=== PATIENT | male | born 1950 | race Caucasian/White ===

== ENCOUNTER 2019-06-30 12:52 | Outpatient (CLI) | payer MEDICARE, SELFPAY ==
--- NOTE | ~2019-06-30 | US_ITS ---
EXAMINATION: US venous doppler LE EXAM DATE: 06/30/2019 14:28 INDICATION: Bilateral leg edema. TECHNIQUE: Multiple grayscale, color flow and Doppler images of the lower extremity deep venous syste ms bilaterally were obtained and reviewed. Comparison is made to prior examination from 04/20/2016. FINDINGS: Right side: The right common femoral, femoral and profunda veins demonstrate normal color flow, respi ratory variation, augmentation and compressibility. Compressibility, color flow confirmed within the right popliteal, posterior tibial, peroneal, and greater saphenous veins. Left side: The left common femoral, femoral and profunda veins demonstrate normal color flow, respira tory variation, augmentation and compressibility. Compressibility, color flow confirmed within the l eft popliteal, posterior tibial, peroneal, and greater saphenous veins. IMPRESSION: 1. No lower extremity deep venous thrombosis bilaterally. Reviewed, dictated and finalized at location B. ENT WORKER
== END 2019-06-30 12:53 | disposition home or self-care (01) ==
PROVIDERS: PCP Internal Medicine; Visit Provider Nurse Practitioner
DX: R60.9 Edema, unspecified (principal)
CPT/HCPCS: 93970

== ENCOUNTER 2020-04-12 12:37 | Outpatient (CLI) | payer MEDICARE, SELFPAY ==
--- NOTE | ~2020-04-12 | US_ITS ---
EXAMINATION: US thyroid EXAM DATE: 04/12/2020 13:16 INDICATION: Dysphagia. TECHNIQUE: Multiple grayscale and Doppler images of the thyroid were obtained (by a technologist who performed the scan) and subsequently reviewed. Individual nodules and recommendations may be reporte d in accordance with TI-RADS system as designated by the 2017 ACR White Paper TI-RADS committee. The re is no prior study for comparison. FINDINGS: The right thyroid lobe measures 4.4 x 2.2 x 2.0 cm, mildly enlarged. The left measures 4.3 x 2.5 x 1. 8 cm, also mildly enlarged. Mildly heterogeneous thyroid echogenicity. Left thyroid lobe subcentimeter nodule measuring 8 x 6 x 6 mm, solid (2 points), hypoechoic (2 points ), wider than tall, smooth margin, containing peripheral calcification (2 points), category TR4 for t his nodule. IMPRESSION: 1. Mild thyromegaly. 2. Subcentimeter left thyroid lobe nodule not likely clinically significant. Reviewed, dictated and finalized at location A. SKIN TRIMMER
--- NOTE | 2020-04-12 13:20 | ECHO_ITS ---
Patient Info Name: Nicholas Cross Age: 70 years : 1950 Gender: Male Ht: 68 in Wt: 248 lbs BSA: 2.37 m2 HR: 72 bpm BP: 140 / 101 mmHg Heart Rhythm: Sinus Rhythm Technical Quality: Good Exam Date: 04/12/2020 1:29 PM Exam Location: [facility] Patient Status: Outpatient Admit Date: 04/12/2020 Staff Ordering Physician: Brianna Murillo NP Purchasing Contracting Clerk: Dorian Hampton RDCS Attending Provider: Brianna Murillo NP Referring Physician: Jerald Arenas MD; Exam Type: CA echo doppler color flow Study Info Indications I10 - Essential (primary) hypertension Complete two-dimensional, color flow and Doppler transthoracic echocardiogram is performed. Strain analysis performed. Summary 1. Left ventricular systolic function is normal, estimated at 55-60%. 2. There is moderately increased left ventricular wall thickness. 3. The left ventricular diastolic function is grade II diastolic dysfunction. 4. Right atrial chamber dimension is mildly enlarged. 5. There is trace tricuspid valve regurgitation. 6. Unable to estimate PA systolic pressure due to poor spectral resolution of tricuspid regurgitant jet velocity. 7. There is mild mitral valve regurgitation. 8. Right ventricular systolic function is normal with apical hypokinesis.. Left Ventricle Left ventricular chamber dimension is normal. Left ventricular systolic function is normal, estimated at 55-60%. There is moderately increased left ventricular wall thickness. The left ventricular diastolic function is grade II diastolic dysfunction. Global longitudinal strain is mildly elevated at -15 %. Right Ventricle Right ventricular chamber dimension is normal. Right ventricular systolic function is normal with apical hypokinesis.. Left Atria Left atrial chamber dimension is normal. Right Atria Right atrial chamber dimension is mildly enlarged. Aortic Valve The aortic valve is not well visualized. There is no aortic valve stenosis. There is trace aortic valve regurgitation. Pulmonic Valve The pulmonic valve is not well visualized. There is mild pulmonic regurgitation. Mitral Valve The mitral valve has thickened leaflets. There is mild mitral valve regurgitation. The mitral valve annulus is mildly calcified. Tricuspid Valve The tricuspid valve leaflets are normal. There is trace tricuspid valve regurgitation. Unable to estimate PA systolic pressure due to poor spectral resolution of tricuspid regurgitant jet velocity. Pericardium/Pleural The pericardium appears normal. There is small pericardial effusion. Inferior Vena Cava Normal inferior vena cava with >50% collapse upon inspiration consistent with normal right atrial pressure, 5 mmHg. Aorta The aortic root size at the sinus of Valsalva is normal. Left Ventricular Outflow Tract Name Value Normal LVOT 2D LVOT Diameter 2.0 cm LVOT Doppler LVOT Peak Gradient 3 mmHg LVOT Mean Gradient 2 mmHg LVOT VTI 21 cm LVOT VTI/AV VTI Ratio 0.9 LVOT
== END 2020-04-12 12:38 | disposition home or self-care (01) ==
PROVIDERS: PCP Internal Medicine; Referring Provider Specialist; Visit Provider Nurse Practitioner
DX: R13.10 Dysphagia, unspecified (principal); I10 Essential (primary) hypertension
CPT/HCPCS: 76536; 93306

== ENCOUNTER 2021-12-20 14:30 | Outpatient (RCR) | payer MEDICARE, SELFPAY ==
--- NOTE | 2021-11-23 11:29 | PTOPEVAL ---
PHYSICAL THERAPY EVALUATION AND PLAN OF CARE 11-23-21 Thank you for referring Nicholas Cross to [facility] for the diagnosis of B LE lymphedema. Alfonso is scheduled to be seen for therapy? 3-5 x/week for 5 weeks. Treatment will begin at 5x/wk and decrease to 3x/wk as able. Please review, sign, date and return this plan of care FRANCY. I agree with and certify that the following plan of care is medically necessary. Referring Physician Date Attending Provider: Salud Baer NP Past Medical History Source of Past Medical History Patient Neurological History Hx Other Neurological Disorders Yes: essential tremors- med control Cardiovascular History Hx Deep Vein Thrombosis Yes: R and L LE Hx Hypertension Yes: meds Respiratory History Hx Respiratory Disorders No Significant History Gastrointestinal History Hx Hernia Yes: surgical repair Musculoskeletal History Hx Orthopedic Surgery Yes: back surgery-lumbar fusion; R arthroscopy, B patellar smoothing Endocrine History Hx Diabetes Yes Evaluation Information Diagnosis B LE lymphedema Onset about 1 yr ago Prior Level of Function Activity Level (Last 3 Months) Occupation retired Activity of Daily Living Ability Independent Indoor/Home Mobility Independent Community Mobility Independent Functional Cognition (Planning, Shopping Independent , Taking Medications) Cooking Yes Cleaning No Laundry Yes Shopping Yes Driving Yes Home Setting Home Type House Living Situation Alone Mobility Assistive Devices (Used Last 3 Walker, Wheeled Months) Comments Additional Prior Level of Function have senior scheduler assist; Comments reports 3 falls in the past 6 months- lose balance and fall backwards- foot drop L; do not do leg exercises; Pain Assessment Pain Scale Pain Scale Used Numeric (1 - 10) Self Report Pain Assessment Bilateral Leg(s) Reported Pain Level 2 Pain Description Heavy,Sharp Radicular Pain Location sharp pangs shooting in legs intermittent; otherwise heavy legs all time Pain Frequency Chronic,Continuous Lowest Pain Intensity 2 Greatest Pain Intensity 8 Gross Lower Extremity Range of Motion sitting: ankle DF R 0'/ L (-5' Comments ); knee R 0-95' and L 0-95'; in sitting- labored and
--- NOTE | 2021-11-23 11:48 | PCPTNOTE ---
pt signed consent and photos taken of his legs; downloaded into EMR;
--- NOTE | 2021-12-11 16:21 | PCPTNOTE ---
Discussed home intermittent compression pump for home, he is interested in it. Pt signed consent for his info to be faxed to [facility] for insurance authorization for it. This was faxed in.
--- NOTE | 2021-12-13 12:32 | PCPTNOTE ---
Patient called & cancelled scheduled appointment this date due to being sick. Will continue with PT POC.
--- NOTE | 2021-12-20 15:20 | PTOPEVAL ---
Addendum entered by Ya Purdy, PT 02/21/22 12:00: 02-21-22: Mr. Cross has received 4 weeks of lymphedema treatment by PT; he has performed HEP for LE's, elevation and had compression to his legs. He continues to have issues with lymphedema of his legs and would benefit from a home intermittent compression pump to manage his chronic condition. Original Note: PHYSICAL THERAPY DISCHARGE REPORT 12-20-21 Refer to the clinical summary below, for his status today, compared to the initial evaluation. Discharge PT services. Thank you for referring Nicholas Cross to [facility].? Please review, sign, date and return this Discharge Report FRANCY. I agree with and certify that the following plan of care is medically necessary. Referring Physician Date Attending Provider: Salud Baer NP Subjective Information Alfonso reports: garments are Query Text:As Reported By Patient/ doing OK- little tricky to put Family on, but am able to do it; they are comfortable and no problems; just saw my general dr and put me on another antibiotic for safety since legs are still so red; feel like ready to be done with therapy; Pain Assessment Self Report Self Report Pain Level 0 Pain Score Pain Score 0: Self Report Lower Extremity Muscle Strength Testing General Lower Extremity Strength Gross Lower Extremity Strength supine: R and L LE- able to perform 20 reps of supine SLR and hip abduction Lymphedema Evaluation Skin Inspection Location Left Lower Extremity,Right Lower Extremity Skin Observations Hyperkeratosis, Hyperpigmentation,Hyperplasia Tissue Texture Firm Lymphedema Stage II Skin Inspection Comment L LE: redness over lower leg from ~ 14 to 36 cm from bottom of foot; no redness over toes or dorsum of foot; good skin color over knee and thigh --without any redness or fibrosis of tissue; dry flaking skin over lower leg ------- R LE: redness over lower leg from ~ 16 to 24 cm from bottom of foot; slight dry and flaking skin over lower leg; good skin color over knee and thigh, without any redness or fibrotic tissue LE Circumferential Measurement Right LE Lymphedema Side Righ
== END 2021-12-21 10:37 | disposition home or self-care (01) ==
LOC: ANHPT 14:30
PROVIDERS: PCP Internal Medicine; Referring Provider Nurse Practitioner; Visit Provider Nurse Practitioner
DX: R60.0 Localized edema (principal)
CPT/HCPCS: 97140; 97162; 97530

== ENCOUNTER 2022-03-08 12:51 | Outpatient (CLI) | payer MEDICARE, SELFPAY ==
--- NOTE | ~2022-03-08 | US_ITS ---
EXAMINATION: US venous doppler [facility] DATE: 03/08/2022 13:32 INDICATION: Venous thrombosis TECHNIQUE: Grayscale ultrasound images without and with compression and Doppler ultrasound images of the bilateral lower extremity veins were obtained. COMPARISON: None. FINDINGS: The visualized portions of right common femoral vein, profunda (deep) femoral vein, femoral vein, pop liteal vein, posterior tibial veins, peroneal veins and greater saphenous vein outflow are patent. The visualized portions of left common femoral vein, profunda femoral vein, femoral vein, popliteal v ein, posterior tibial veins, peroneal veins and greater saphenous vein outflow are patent. IMPRESSION: 1. No deep venous thrombosis in either lower limb. Reviewed, dictated and finalized at location A.
== END 2022-03-08 12:52 | disposition home or self-care (01) ==
PROVIDERS: PCP Internal Medicine; Visit Provider Internal Medicine
DX: R60.0 Localized edema (principal); Z86.718 Personal history of other venous thrombosis and embolism
CPT/HCPCS: 93970

== ENCOUNTER → 2022-04-19 14:38 | Outpatient (CLI) | payer MEDICARE, SELFPAY ==
--- NOTE | ~2022-04-19 | XR_ITS ---
XR chest 2V 04/19/2022 14:56 Indication: Shortness of breath Procedure: 2 view chest Comparison: 04/22/2015 Findings: Cardiomegaly. Moderate right pleural effusion versus pleural thickening. Right basilar atel ectasis. Left lung is clear. No acute osseous abnormality. Impression: 1: Moderate right pleural effusion versus pleural thickening. 2: Right basilar atelectasis. Reviewed, dictated and finalized at location A. M CHASER Impression: 1: Moderate right pleural effusion versus pleural thickening. 2: Right basilar atelectasis.
== END ==
PROVIDERS: PCP Nurse Practitioner; Visit Provider Nurse Practitioner
DX: R06.02 Shortness of breath (principal); J98.11 Atelectasis; J90 Pleural effusion, not elsewhere classified
CPT/HCPCS: 71046

== ENCOUNTER 2022-04-24 14:35 | Outpatient (CLI) | payer MEDICARE, SELFPAY ==
--- NOTE | ~2022-04-24 | CT_ITS ---
EXAMINATION: CT diagnostic chest w con DATE: 04/24/2022 15:08 INDICATION: Right pleural effusion. TECHNIQUE: Computed tomography (CT) of the chest was performed without intravenous contrast. The dose -length product was 374.54 mGy-cm. Automated exposure control and iterative reconstruction technique were employed. COMPARISON: No prior studies for comparison. FINDINGS: Small right pleural effusion. Elevated right diaphragm, suspicious for phrenic nerve paraly sis. There is compressive atelectasis in the right lower lobe. There is mediastinal lymph node enlarg ement. Right paratracheal lymph node measures 1.7 cm short axis. Heart size normal. No pericardial or left pleural effusion. No endobronchial lesions. No suspicious pulmonary nodules or masses. There is a 2 mm right upper lobe nodule. IMPRESSION: 1. Small right pleural effusion with underlying right basilar compressive atelectasis. 2: Elevation of the right diaphragm, suspicious for phrenic nerve paralysis. 3: Mediastinal lymphadenopathy, nonspecific. 4: 2 mm right upper lobe nodule, likely benign. Reviewed, dictated and finalized at location B. HAUL OR FARM CHARTER BUS DRIVER IMPRESSION: 1. Small right pleural effusion with underlying right basilar compressive atele ctasis. 2: Elevation of the right diaphragm, suspicious for phrenic nerve paralysis. 3: Mediastinal lymphadenopathy, nonspecific. 4: 2 mm right upper lobe nodule, likely benign.
== END 2022-04-24 14:36 | disposition home or self-care (01) ==
PROVIDERS: PCP Nurse Practitioner; Visit Provider Nurse Practitioner
DX: J90 Pleural effusion, not elsewhere classified (principal); J92.9 Pleural plaque without asbestos
CPT/HCPCS: 71260; Q9967

== ENCOUNTER 2022-06-26 13:54 | Emergency (ER) | payer MEDICARE, SELFPAY ==
--- NOTE | ~2022-06-26 | XR_ITS ---
EXAM: XR elbow LT min 3V DATE: 06/26/2022 15:14 HISTORY: fall, left elbow laceration, pain bleeding . COMPARISON: None available. FINDINGS: Mildly decreased mineralization. No fracture or dislocation. No lytic or blastic lesion. M oderate degenerative change in the elbow joint. No erosion or periosteal change. No elbow joint effus ion. Soft tissue swelling and subcutaneous gas in the posterior soft tissues overlying the olecranon. IMPRESSION: No acute osseous finding in the left elbow. Reviewed, dictated and finalized at location K. ING MECHANIC
[2022-06-26 14:00] VITALS: BP 157/62; PULSE 102; RESP 18; TEMP 37.4; O2SAT 99
--- NOTE | 2022-06-26 15:05 | ED.FALL ---
HPI - Fall General Chief Complaint: Fall Stated Complaint: fall last night-left elbow laceration Time Seen by Provider: 06/26/22 14:15 History of Present Illness HPI Narrative: Patient is a 72-year-old male presenting with a laceration. Patient states that he woke up in the middle of the night to get a glass of water. States that he lost his balance while in the kitchen and he fell back landing on his left elbow. States that he has a large laceration to the left elbow. States that he was able to rinse it out and apply Neosporin. He then put a gauze pad over it. States he had to go get his car looked at this morning and then he came here for evaluation. He is unsure when his last tetanus shot was. He denies striking his head or losing consciousness. No neck or back pain. He denies further complaints or injuries. Related Data Home Medications Medication Instructions Recorded Confirmed diphenhydramine HCl 50 mg capsule 50 mg PO BID 06/25/19 04/19/22 melatonin 10 mg capsule 20 mg PO .QHS 06/25/19 04/19/22 multivitamin 1 tablet PO DAILY 06/25/19 04/19/22 omega-3 fatty acids 1,000 mg 1,000 mg PO BID 06/25/19 04/19/22 capsule (Fish Oil Concentrate) fluticasone propionate 50 2 spray intranasal DAILY 07/29/19 04/19/22 mcg/actuation nasal spray,suspension (Flonase Allergy Relief) glucosamine-chondroitin 250 mg-200 1 tablet PO BID 11/25/19 04/19/22 mg tablet (Osteo Bi-Flex) naltrexone 50 mg tablet 4.5 mg PO DAILY 11/25/19 04/19/22 Allergies Allergy/AdvReac Type Severity Reaction Status Date / Time No Known Allergies Allergy Unknown Verified 06/26/22 14:31 Review of Systems Review of Systems: All systems reviewed & are unremarkable except as noted in HPI and below PMFSH Past Medical History Medical History Allergies Arthritis Bilateral lower extremity edema Cataract fragments in both eyes following surgery Chronic total retinal detachment Chronic venous stasis dermatitis of both lower extremities GERD (gastroesophageal reflux disease) History of DVT (deep vein thrombosis) Hypertension Testicular cancer Type 2 diabetes mellitus Surgical History Surgical History H/O hernia repair History of cataract surgery Left: August 2019 Right: February 2020 History of knee surgery History of vasectomy Family History Family History Father Diabetes mellitus Family history of congestive heart failure Mother Diabetes mellitus Unknown Family history of bladder cancer Social History Social History Social History: Caffeine-coffee daily Smoking status: Former smoker Smoking end date: 06/03/97 Alcohol intake: current Alcohol use details: 3 drinks every day, gin Lack of Transportation: YES Lack of Food: Never True Current Housing: I Have Housing Concerned About Future Housing: No Difficulty Paying Gas/Electric Bills: No Difficulty Paying for Meds: No Currently Unemployed: No Education: High School Diploma/GED Difficulty w/ Childcare or Family Care: No Exam Narrative: GENERAL: Well-appearing, well-nourished, and in no acute distress. HEAD: Normocephalic, atraumatic. EYES: PERRLA and EOMI. ENT: Nares clear, no rhinorrhea or epistaxis. Mucous membranes moist. NECK: Supple. CHEST: Clear to auscultation. No respiratory distress. HEART: Regular rate and rhythm. No murmur heard. Normal peripheral pulses. ABDOMEN: Soft, nontender, nondistended, normal active bowel sounds. EXTREMITIES: Normal range of motion. Significant pitting edema bilateral lower extremities with dressings in place SKIN: Warm, dry, no rash. Large gaping laceration left elbow, no retained foreign bodies, normal ROM NEURO: No focal deficits. Alert and oriented x3. PSYCH: Normal mood and a
[2022-06-26] MEDS: TETANUS,DIPHTHERIA,AC PERTUSSIS ADULT (0.5 ML) BOOSTRIX IM (15:40)
== END 2022-06-26 17:30 | disposition home or self-care (01) ==
PROVIDERS: Emergency Provider Emergency Medicine; PCP Nurse Practitioner
DX: S51.012A Laceration without foreign body of left elbow, initial encounter (principal); M19.90 Unspecified osteoarthritis, unspecified site; K21.9 Gastro-esophageal reflux disease without esophagitis; I10 Essential (primary) hypertension; E11.9 Type 2 diabetes mellitus without complications; W01.0XXA Fall on same level from slipping, tripping and stumbling without subsequent striking against object, initial encounter; Z23 Encounter for immunization
CPT/HCPCS: 12004; 73080; 90471; 90715; 99283

== ENCOUNTER 2022-07-05 14:34 | Emergency (ER) | payer MEDICARE, SELFPAY ==
[2022-07-05] VITALS (26 sets, daily range): BP systolic 145–166; BP diastolic 63–145; PULSE 93–105; RESP 18–22; TEMP 36.3–36.8; O2SAT 97–100
--- NOTE | ~2022-07-05 | XR_ITS ---
EXAMINATION: XR foot LT min 3V DATE: 07/05/2022 23:28 INDICATION: Left foot infection TECHNIQUE: Dorsoplantar, lateral, and 2 oblique views of the left the bones are osteopenic. foot were obtained. COMPARISON: None FINDINGS: The bones are osteopenic. No acute fracture is identified. There appear to be old healed fr actures of the second and fifth proximal phalanges. There is moderate osteoarthritis of multiple inte rphalangeal joints. Soft tissue swelling is seen over the metatarsals. There appears to be a plantar soft tissue defect of the proximal foot on the lateral view.. IMPRESSION: 1. Soft tissue swelling of the foot with possible plantar ulceration. No acute osseous abnormality id entified. Reviewed, dictated and finalized at location B. PMENT OPERATOR IMPRESSION: 1. Soft tissue swelling of the foot with possible plantar ulceration. No acute osseous abnormality identified.
[2022-07-05] MEDS: ACETAMINOPHEN 500 MG TABLET 1000 MG PO (21:14)
[2022-07-05 21:30] LABS: Basophils Percent Auto 0.3 % (0.2-1.2); Eosinophils Absolute Auto 0.1 K/mm3 (0-0.3); Eosinophils Percent Auto 1.6 % (0-4.4); Hematocrit 33.6 % (42.0-52.0); Immature Granulocyte Absolute 0.02 K/mm3 (0.00-0.031); Immature Granulocyte Percent A 0.3 % (0-0.5); Lymphocytes Absolute Auto 0.84 K/mm3 (0.9-3.2); Lymphocytes Percent Auto 13.1 % (18.3-44.2); Mean Corpuscular HGB Conc 32.7 g/dl (32-36); Mean Corpuscular Volume 100.9 fl (80-100); Monocytes Absolute Auto 0.8 K/mm3 (0.1-0.6); Monocytes Percent Auto 12.8 % (2.6-8.5); Neutrophils Absolute Auto 4.6 K/mm3 (1.3-6.7); Neutrophils Percent Auto 71.9 % (45.5-73.1); Platelet Count Result 252 k/mm3 (150-375); Red Blood Count 3.33 M/mm3 (4.6-6.20); Red Cell Distribution Width 16.3 % (11.5-14.5); White Blood Count 6.4 K/mm3 (4.5-10.0)
[2022-07-05 21:40] LABS: Anion Gap 5 mmol/L (8-16); Blood Urea Nitrogen 14 mg/dL (9-20); Calcium 8.5 mg/dL (8.4-10.2); Carbon Dioxide 26 mmol/L (22-30); Chloride 109 mmol/L (98-107); Estimated CRCL calculation 131 ml/min; Estimated Glomerular Filt Rate > 60; Glucose 129 mg/dL (65-110); Potassium 4.1 mmol/L (3.4-5.0); Sodium 140 mmol/L (137-145)
[2022-07-05] MEDS: ceFAZolin SODIUM 1 GM VIAL IV PUSH (21:56)
[2022-07-05 22:13] LABS: Influenza A QL RT-PCR Negative (Negative); Influenza B QL RT-PCR Negative (Negative); RSV RNA, RT-PCR Negative (Negative); SARS-CoV-2 RNA PCR Negative
--- NOTE | 2022-07-05 22:56 | ED.WOUNDLAC ---
HPI - Wound/Laceration General Chief Complaint: Wound/Laceration Stated Complaint: wounds on legs Time Seen by Provider: 07/05/22 21:06 History of Present Illness HPI narrative: 72-year-old male with history of lymphedema presents here with concern for infection on his left foot, he has no systemic symptoms, including fevers or chills, nausea or vomiting. He gets dressing changes 3 times a week, and the nurse was worried about an infection. Related Data Home Medications Medication Instructions Recorded Confirmed diphenhydramine HCl 50 mg capsule 50 mg PO BID 06/25/19 07/05/22 multivitamin 1 tablet PO DAILY 06/25/19 07/05/22 omega-3 fatty acids 1,000 mg 1,000 mg PO BID 06/25/19 07/05/22 capsule (Fish Oil Concentrate) fluticasone propionate 50 2 spray intranasal DAILY 07/29/19 07/05/22 mcg/actuation nasal spray,suspension (Flonase Allergy Relief) glucosamine-chondroitin 250 mg-200 1 tablet PO BID 11/25/19 07/05/22 mg tablet (Osteo Bi-Flex) Allergies Allergy/AdvReac Type Severity Reaction Status Date / Time No Known Allergies Allergy Unknown Verified 07/05/22 21:29 Review of Systems Review of Systems: CONST: No fever. HEENT: No sore throat C/V: No chest pain RESP: No cough GI: No nausea or vomiting M/S: Ulcer/slight pain to left lateral foot SKIN: Ulcer to bottom/lateral left foot NEURO: [No headache or focal numbness or weakness] PSYCH: [No depression] [facility] Past Medical History Medical History Allergies Arthritis Bilateral lower extremity edema Cataract fragments in both eyes following surgery Chronic total retinal detachment Chronic venous stasis dermatitis of both lower extremities GERD (gastroesophageal reflux disease) History of DVT (deep vein thrombosis) Hypertension Testicular cancer Type 2 diabetes mellitus Surgical History Surgical History H/O hernia repair History of cataract surgery Left: August 2019 Right: February 2020 History of knee surgery History of vasectomy Family History Family History Father Diabetes mellitus Family history of congestive heart failure Mother Diabetes mellitus Unknown Family history of bladder cancer Social History Social History Social History: Caffeine-coffee daily Smoking status: Former smoker Smoking end date: 06/03/97 Alcohol intake: current Alcohol use details: 3 drinks every day, gin Lack of Transportation: YES Lack of Food: Never True Current Housing: I Have Housing Concerned About Future Housing: No Difficulty Paying Gas/Electric Bills: No Difficulty Paying for Meds: No Currently Unemployed: No Education: High School Diploma/GED Difficulty w/ Childcare or Family Care: No Exam Narrative: EXAMINATION OF ORGAN SYSTEMS/BODY AREAS: Constitutional: Vital signs per nursing GENERAL:[No acute distress, non-toxic appearing.] HEAD: Normal with no signs of head trauma. EYES: EOMI, conjunctiva normal ENT: Hearing grossly intact LUNGS: Nonlabored breathing. HEART: [Regular rate and rhythm] ABD: [Soft], [nontender to palpation] EXT: Normal painless range of motion; 1cm x 1 cm small ulcer to left lateral foot, no active drainage, some mild surrounding erythema, no exquisite tenderness SKIN: Described above NEURO: [Alert and oriented x 3. No gross focal sensory or strength deficits.] PSYCH: Normal affect Course Vital Signs Vital signs: Vital Signs Temperature 97.3 F L 07/05/22 14:35 Pulse Rate 93 07/05/22 14:35 Respiratory Rate 18 07/05/22 14:35 Blood Pressure 149/66 H 07/05/22 14:35 Pulse Oximetry 98 07/05/22 14:35 Oxygen Delivery Room Air 07/05/22 14:35 Temperature 98.2 F 07/05/22 20:17 Pulse Rate 97 07/06/22 00:28 Respiratory Rate 19 07/05/22 21:16 Blood Pressure
[2022-07-06 00:28] VITALS: BP 152/98; PULSE 97; O2SAT 99
== END 2022-07-06 00:30 | disposition home or self-care (01) ==
LOC: ANHED 22:17
PROVIDERS: Emergency Provider Emergency Medicine; PCP Internal Medicine
DX: L08.9 Local infection of the skin and subcutaneous tissue, unspecified (principal); Z20.822 Contact with and (suspected) exposure to COVID-19; I89.0 Lymphedema, not elsewhere classified; E11.9 Type 2 diabetes mellitus without complications; I10 Essential (primary) hypertension; H59.023 Cataract (lens) fragments in eye following cataract surgery, bilateral; H33.059 Total retinal detachment, unspecified eye; K21.9 Gastro-esophageal reflux disease without esophagitis; M19.90 Unspecified osteoarthritis, unspecified site; Z86.718 Personal history of other venous thrombosis and embolism; Z85.47 Personal history of malignant neoplasm of testis; Z87.891 Personal history of nicotine dependence; Z79.84 Long term (current) use of oral hypoglycemic drugs; Z79.01 Long term (current) use of anticoagulants
CPT/HCPCS: 36415; 73630; 80048; 85025; 87040; 87637; 96374; 99284; A9270; J0690

== ENCOUNTER 2022-07-13 11:15 | Outpatient (RCR) | payer MEDICARE, SELFPAY ==
--- NOTE | 2022-05-21 16:11 | PTOPEVAL1 ---
Addendum entered by Ya Purdy, PT 05/22/22 10:37: plan of care increased to 0-5x/wk, to allow for first 2 weeks of treatment to be 5x/wk due to weeping and drainage, to change compression wraps more often. Original Note: Assessment and note entered by Ya Purdy, PT Evaluation Information Assessment Status Evaluation Diagnosis B LE lymphedema Onset January 2022 Subjective Information legs more swollen, have completed antibiotics about one month ago; have had 2 falls in the past 3 months; have not worn the knee high compression garments since about January; have been using the home compression machine every day; have weeping from legs and not putting any bandages on legs; Reported Pain Level Pain Score Self Report Additional Pain Score Comments pain range of 3-8/10, pain in both legs and knees, L > R; Assessment PT Clinical Summary Alfonso has B LE lymphedema. He was here for treatment in November to December 2021. He had a home intermittent compression pump and calf high compression garments. Since January, he has not worn his compression garments due to legs larger and started weeping again. He has completed antibiotics. He also now has more abdominal issues with diarrhea, going to go to gastro dr and also has a referral to a thermostat maker. With the evaluation, his legs are red, with superficial open areas with weeping; they are larger with the circumferential measurements than when he was last here R by 124.9 cm and L by 126.6 cm larger. He has decreased ROM of R and L knee flexion and ankle DF motions. Skilled PT services are indicated for lymphedema treatment--multi layer compression wraps, manual lymph drainage, LE exercises and education for self care of lymphedema and leg exercises. With education for compression garment for him to obtain. Plan of Care Interventions Lymphedema Compression Pu,Manual Lymph Drainage, Therapeutic Exercise PT Services Indicated Yes Treatment Frequency and 0-3x/wk for 8 weeks, due to availability of Duration therapist to start treatment These treatments will address the objective and functional deficits as defined above. The patient will be advanced safely and appropriately in order for the patient to progress towards his/her prior level of function. Additional exercises will be introduced and as well as a compre
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
--- NOTE | 2022-06-18 15:12 | PCPTNOTE ---
pt had to cancel tomorrow's appt due to a dentist appt;
--- NOTE | 2022-06-22 12:01 | PCPTNOTE ---
pt called and canceled due to illness
--- NOTE | 2022-06-27 10:51 | PCPTNOTE ---
pt canceled due to bad weather;
--- NOTE | 2022-06-29 13:39 | PCPTNOTE ---
pt called and canceled due to illness;
--- NOTE | 2022-07-04 16:28 | PCPTNOTE ---
Addendum entered by Rachel Marrufo, LILY 07/04/22 16:38: Pt has MD appointment tomorrow 07/05/22 @ 10:00. Specified where appointment was. Original Note: Pt's therapy session ran long due to Pt's decreased condition. Pt had slight redness over L lateral foot on Jun 21, with no complaints and looked similar to R foot. Therapist noted on Jul 02 slight red area was now L lateral aspect of foot with superficial area--pt reports he stepped on glass before starting therapy--~ 3cm x 2 cm- dark edge with red wound bed- superficial; . This date Pt's L lateral aspect of foot with superficial area, Swelling is 7cm x 5 cm with wound in center measuring 3cm x 2 cm- dark edge with red wound bed- superficial that has now opened, around wound red in color, and warm to the touch. Asked Pt to go to MD. Pt then called MD to get in due to wound becoming worse, Pt has appointment tomorrow 07/05/22 @10:00. Spoke with Pt's MD office on phone and informed them of the wound, falls, and R LE decreasing in status. Then stressed to Pt importance of going due to wound, R LE decreasing in status, and Pt falling several times over the weekend.
--- NOTE | 2022-07-11 11:51 | PCPTNOTE ---
pt called and canceled today's appt-- cannot make it in today.
--- NOTE | 2022-07-17 16:17 | PCPTNOTE ---
pt called and canceled today's reeval, 30 min after appt time; stated he had another fall and is not able to make it in today.
--- NOTE | 2022-07-23 15:05 | PCPTNOTE ---
PHYSICAL THERAPY DISCHARGE 07-23-22 Attending Provider: Salud Baer NP Patient:Nicholas Cross Date of :1950 Mr. Cross called today and canceled his PT appointments for lymphedema, due to going to an in patient rehab unit. Therefore, he will be discharged at this time. The goals were not addressed. Thank you for referring Alfonso to [facility].
== END 2022-07-24 13:44 | disposition home or self-care (01) ==
LOC: ANHPT 11:15
PROVIDERS: PCP Nurse Practitioner; Visit Provider Nurse Practitioner
DX: I87.2 Venous insufficiency (chronic) (peripheral) (principal)
CPT/HCPCS: 29581; 97110; 97140; 97161; 97530

== ENCOUNTER 2022-07-13 14:19 | Emergency (ER) | payer MEDICARE, SELFPAY ==
[2022-07-13 14:34] VITALS: BP 160/85; PULSE 102; RESP 16; TEMP 36.2; O2SAT 100
--- NOTE | 2022-07-13 14:48 | ED.LOWEXIN ---
HPI - Extremity Injury (Lower) General Chief Complaint: Extremity Injury, Lower Stated Complaint: open sore lt foot Time Seen by Provider: 07/13/22 14:35 Source: patient Mode of arrival: ambulatory Limitations: no limitations History of Present Illness HPI Narrative: 72-year-old male with history of diabetes, DVT, HTN, and chronic venous stasis dermatitis presented for complaint worsening left foot ulcer despite antibiotic treatment. Patient was seen in the ER for this wound on 07/05/22, given IV Ancef and discharged with oral antibiotics doxy and cephalexin. Last dose is today. He admits the ulcer to the plantar/lateral aspect is tender, and the site is spreading with redness up to the dorsal aspect of the foot. States he follows with the lymphedema Clinic MWF, and today they told him it appears worse than 4 days ago. He did not go to the clinic 2 days ago as scheduled (sat) due to right sided pain. He was seen 3 days ago by PCP, the wound was not evaluated at that time. Denies recent drainage from the wound. Currently denies n/v/d/f/c. He denies applying anything to the site or taking anything for pain. Related Data Home Medications Medication Instructions Recorded Confirmed diphenhydramine HCl 50 mg capsule 50 mg PO BID 06/25/19 07/13/22 multivitamin 1 tablet PO DAILY 06/25/19 07/13/22 omega-3 fatty acids 1,000 mg 1,000 mg PO BID 06/25/19 07/13/22 capsule (Fish Oil Concentrate) fluticasone propionate 50 2 spray intranasal DAILY 07/29/19 07/13/22 mcg/actuation nasal spray,suspension (Flonase Allergy Relief) glucosamine-chondroitin 250 mg-200 1 tablet PO BID 11/25/19 07/13/22 mg tablet (Osteo Bi-Flex) psyllium husk 3.4 gram/5.4 gram 1 tbsp PO DAILY 07/10/22 07/13/22 oral powder (Metamucil) Allergies Allergy/AdvReac Type Severity Reaction Status Date / Time No Known Allergies Allergy Unknown Verified 07/13/22 14:25 Review of Systems Review of Systems: CONSTITUTIONAL: Denies body aches, fever, chills, or sweats. EYES: Denies visual changes, redness, or discharge. ENT: Denies rhinorrhea, congestion CARDIOVASCULAR: Denies chest pain, palpitations; reports chronic edema of LEs RESPIRATORY: Denies cough or dyspnea. GASTROINTESTINAL: Denies abdominal pain, nausea, vomiting, or diarrhea. SKIN: per HPI MUSCULOSKELETAL: Denies back pain, joint pain, or myalgia. NEUROLOGIC: Denies headache, numbness, tingling, or weakness. [facility] Past Medical History Medical History Allergies Arthritis Bilateral lower extremity edema Cataract fragments in both eyes following surgery Chronic total retinal detachment Chronic venous stasis dermatitis of both lower extremities GERD (gastroesophageal reflux disease) History of DVT (deep vein thrombosis) Hypertension Testicular cancer Type 2 diabetes mellitus Surgical History Surgical History H/O hernia repair History of cataract surgery Left: August 2019 Right: February 2020 History of knee surgery History of vasectomy Family History Family History Father Diabetes mellitus Family history of congestive heart failure Mother Diabetes mellitus Unknown Family history of bladder cancer Social History Social History Social History: Caffeine-coffee daily Smoking status: Former smoker Smoking end date: 06/03/97 Alcohol intake: current Alcohol use details: 3 drinks every day, gin Lack of Transportation: No Lack of Food: Never True Current Housing: I Have Housing Concerned About Future Housing: No Difficulty Paying Gas/Electric Bills: No Difficulty Paying for Meds: No Currently Unemployed: No Education: High School Diploma/GED Difficulty w/ Childcare or Family Care: No Comments At time of signature, I have revie
== END 2022-07-13 15:02 | disposition short-term general hospital (02) ==
PROVIDERS: Emergency Provider Nurse Practitioner Family; PCP Nurse Practitioner
DX: E11.621 Type 2 diabetes mellitus with foot ulcer (principal); I10 Essential (primary) hypertension; Z86.718 Personal history of other venous thrombosis and embolism; Z85.47 Personal history of malignant neoplasm of testis; Z87.891 Personal history of nicotine dependence
CPT/HCPCS: 99212; G0463

== ENCOUNTER 2022-07-13 15:54 | Emergency (ER) | payer MEDICARE, SELFPAY ==
[2022-07-13] VITALS (7 sets, daily range): BP systolic 120–156; BP diastolic 48–80; PULSE 95–103; RESP 14–18; TEMP 36.3–37.1; O2SAT 98–100
--- NOTE | ~2022-07-13 | XR_ITS ---
EXAMINATION: XR foot LT min 3V DATE: 07/13/2022 16:42 INDICATION: Left foot ulcer. Left foot redness and swelling. TECHNIQUE: 4 views of left foot were obtained. COMPARISON: Left foot radiographs 07/05/2022 FINDINGS: Bone alignment is normal. There is a nondisplaced transverse fracture of head of fifth prox imal phalanx. There is diffuse osteopenia. There is mild osteoarthrosis of first metatarsophalangeal joint and some the interphalangeal joints and midfoot joints. No radiopaque foreign body. There is so ft tissue swelling of the foot. IMPRESSION: 1. Transverse fracture of head of fifth proximal phalanx, which may be subacute or chronic. 2. Mild polyarticular osteoarthritis. Reviewed, dictated and finalized at location A. OFF TENDER GLASS
[2022-07-13 16:35] LABS: Basophils Percent Auto 0.3 % (0.2-1.2); Eosinophils Absolute Auto 0.1 K/mm3 (0-0.3); Eosinophils Percent Auto 0.6 % (0-4.4); Hematocrit 33.9 % (42.0-52.0); Immature Granulocyte Absolute 0.03 K/mm3 (0.00-0.031); Immature Granulocyte Percent A 0.3 % (0-0.5); Lymphocytes Absolute Auto 1.21 K/mm3 (0.9-3.2); Lymphocytes Percent Auto 13.9 % (18.3-44.2); Mean Corpuscular HGB Conc 32.4 g/dl (32-36); Mean Corpuscular Hemoglobin 32.5 pg (26-34); Mean Corpuscular Volume 100.3 fl (80-100); Mean Platelet Volume 9.2 fl (7.4-10.4); Monocytes Absolute Auto 0.8 K/mm3 (0.1-0.6); Monocytes Percent Auto 8.6 % (2.6-8.5); Neutrophils Absolute Auto 6.6 K/mm3 (1.3-6.7); Neutrophils Percent Auto 76.3 % (45.5-73.1); Platelet Count Result 323 k/mm3 (150-375); Red Blood Count 3.38 M/mm3 (4.6-6.20); Red Cell Distribution Width 16.5 % (11.5-14.5); White Blood Count 8.7 K/mm3 (4.5-10.0)
[2022-07-13 16:46] LABS: Alanine Aminotransferase 21 U/L (6-50); Albumin Level 3.6 g/dL (3.5-5.1); Alkaline Phosphatase 112 U/L (38-126); Anion Gap 9 mmol/L (8-16); Aspartate Amino Transferase 29 U/L (17-59); Blood Urea Nitrogen 17 mg/dL (9-20); Calcium 8.9 mg/dL (8.4-10.2); Carbon Dioxide 18 mmol/L (22-30); Chloride 110 mmol/L (98-107); Creatine Kinase 130 U/L (55-170); Estimated CRCL calculation 103 ml/min; Estimated Glomerular Filt Rate > 60; Glucose 109 mg/dL (65-110); Potassium 3.7 mmol/L (3.4-5.0); Sodium 137 mmol/L (137-145)
[2022-07-13 16:47] LABS: Lactic Acid Reflex 1.4 mmol/L (0.7-2.0)
[2022-07-13 18:42] LABS: CRP 3.4 mg/dL (<1.0)
--- NOTE | 2022-07-13 19:48 | ED.GENADULT ---
HPI - General Adult General Chief complaint: Extremity Problem,Nontraumatic Stated complaint: diabetic ulcer left foot Time Seen by Provider: 07/13/22 17:39 Source: patient Mode of arrival: ambulatory Limitations: no limitations History of Present Illness HPI narrative: 72-year-old with a history of hypertension, lymphedema, diabetes here with the complaints of ulcer on his left foot which has been ongoing for for several weeks. Patient states that he is being treated by Dr. Forte for lymphedema with compression stockings and he is presently on doxycycline and Keflex. He denies any fever or chills, no drainage from the wound , he was seen by PA. Some erythema on the dorsum of the foot was referred to the ER for further evaluation. Severity: mild Pain Consistency: constant Relieving factors: none Exacerbating factors: none Associated symptoms: denies other symptoms Related Data Home Medications Medication Instructions Recorded Confirmed diphenhydramine HCl 50 mg capsule 50 mg PO BID 06/25/19 07/13/22 multivitamin 1 tablet PO DAILY 06/25/19 07/13/22 omega-3 fatty acids 1,000 mg 1,000 mg PO BID 06/25/19 07/13/22 capsule (Fish Oil Concentrate) fluticasone propionate 50 2 spray intranasal DAILY 07/29/19 07/13/22 mcg/actuation nasal spray,suspension (Flonase Allergy Relief) glucosamine-chondroitin 250 mg-200 1 tablet PO BID 11/25/19 07/13/22 mg tablet (Osteo Bi-Flex) psyllium husk 3.4 gram/5.4 gram 1 tbsp PO DAILY 07/10/22 07/13/22 oral powder (Metamucil) Metamucil 07/13/22 Allergies Allergy/AdvReac Type Severity Reaction Status Date / Time No Known Allergies Allergy Unknown Verified 07/13/22 14:25 Review of Systems Review of Systems: All systems reviewed & are unremarkable except as noted in HPI and below Constitutional: Constitutional: Reports no additional constitutional complaints Eyes: Eyes: Reports no additional eye complaints ENT: Reports system reviewed and no additional complaints, except as documented Cardiovascular: Cardiovascular: Reports no additional cardiovascular complaints Respiratory: Respiratory: Reports no additional respiratory complaints Gastrointestinal: Gastrointestinal: Reports no additional gastrointestinal complaints Musculoskeletal: Musculoskeletal: Reports as per HPI Integumentary/Breasts: Skin/Breast: Reports as per HPI Neurologic: Reports system reviewed and no additional complaints, except as documented PMF Past Medical History Medical History Allergies Arthritis Bilateral lower extremity edema Cataract fragments in both eyes following surgery Chronic total retinal detachment Chronic venous stasis dermatitis of both lower extremities GERD (gastroesophageal reflux disease) History of DVT (deep vein thrombosis) Hypertension Testicular cancer Type 2 diabetes mellitus Surgical History Surgical History H/O hernia repair History of cataract surgery Left: August 2019 Right: February 2020 History of knee surgery History of vasectomy Family History Family History Father Diabetes mellitus Family history of congestive heart failure Mother Diabetes mellitus Unknown Family history of bladder cancer Social History Social History Social History: Caffeine-coffee daily Smoking status: Former smoker Smoking end date: 06/03/97 Alcohol intake: current Alcohol use details: 3 drinks every day, gin Lack of Transportation: No Lack of Food: Never True Current Housing: I Have Housing Concerned About Future Housing: No Difficulty Paying Gas/Electric Bills: No Difficulty Paying for Meds: No Currently Unemployed: No Education: High School Diploma/GED Difficulty w/ Childcare or Family Care: No Exam Narrative: GEN
== END 2022-07-13 20:30 | disposition home or self-care (01) ==
PROVIDERS: Emergency Provider Family Medicine; PCP Nurse Practitioner
DX: E11.628 Type 2 diabetes mellitus with other skin complications (principal); L89.892 Pressure ulcer of other site, stage 2; I89.0 Lymphedema, not elsewhere classified; I87.2 Venous insufficiency (chronic) (peripheral); H59.023 Cataract (lens) fragments in eye following cataract surgery, bilateral; H33.059 Total retinal detachment, unspecified eye; K21.9 Gastro-esophageal reflux disease without esophagitis; M19.072 Primary osteoarthritis, left ankle and foot; Z86.718 Personal history of other venous thrombosis and embolism; Z85.47 Personal history of malignant neoplasm of testis; Z87.891 Personal history of nicotine dependence; S92.515A Nondisplaced fracture of proximal phalanx of left lesser toe(s), initial encounter for closed fracture; Z79.01 Long term (current) use of anticoagulants; Z79.84 Long term (current) use of oral hypoglycemic drugs; X58.XXXA Exposure to other specified factors, initial encounter
CPT/HCPCS: 36415; 73630; 80053; 82550; 83605; 85025; 86140; 87040; 99283

== ENCOUNTER 2022-08-01 14:25 | Outpatient (CLI) | payer MEDICARE, SELFPAY ==
--- NOTE | ~2022-08-01 | US_ITS ---
US art doppler w press LE BI INDICATION: Peripheral artery disease. Diabetes. History of testicular cancer. Claudication. Numbness and leg pain. TECHNIQUE: Segmental pressures and plethysmographic and Doppler waveforms of the brachial and lower e xtremity arteries were obtained. COMPARISON: None. FINDINGS: Right and left brachial artery pressures of 149 mm Hg and 151 mm Hg, respectively, are concordant (no rmal difference <= 30 mmHg). The right ankle-brachial index (CARINA) is 1.26 (normal >= 0.9-1.0). The right great toe-brachial index (TBI) is 0.78 (normal >= 0.60). The left CARINA is 1.2. The left TBI is 0.68. IMPRESSION: 1. Normal bilateral ankle and toe brachial indices. Reviewed, dictated and finalized at location B. ING SERVICES DIRECTOR
== END 2022-08-01 14:26 | disposition home or self-care (01) ==
PROVIDERS: PCP Nurse Practitioner; Visit Provider Podiatrist Foot & Ankle Surgery
DX: I73.9 Peripheral vascular disease, unspecified (principal)
CPT/HCPCS: 93923

== ENCOUNTER 2022-08-23 12:51 | Inpatient (IN) | payer MEDICARE, SELFPAY ==
[2022-08-23] VITALS (7 sets, daily range): BP systolic 138–192; BP diastolic 60–93; PULSE 81–90; RESP 16–20; TEMP 36.5–36.7; O2SAT 96–100; BMI 30.3; BMI 30.9
--- NOTE | ~2022-08-23 | US_ITS ---
US venous doppler [facility] DATE: 08/23/2022 18:26 INDICATION: Lower extremity edema TECHNIQUE: Real-time and color flow imaging and Doppler analysis of the veins of the lower extremitie s COMPARISON: 03/08/2022 venous duplex examination of the lower extremities FINDINGS: The greater saphenous veins are patent. There is spontaneous and phasic flow and normal aug mentation and color flow signal and normal compression of the deep veins of both lower extremities. T here is edema of both lower extremities. IMPRESSION: Edema of both lower extremities No evidence of deep venous thrombosis of the lower extremities Reviewed, dictated and finalized at Location A. Reviewed, dictated and finalized at location A.
--- NOTE | 2022-08-23 16:46 | ED.EXTPRO ---
HPI - Extremity Problem General Chief complaint: Extremity Problem,Nontraumatic Stated complaint: bilateral leg edema Time Seen by Provider: 08/23/22 16:44 Source: patient Mode of arrival: ambulatory Limitations: no limitations History of Present Illness HPI Narrative: Patient is a 72-year-old male with a history of DVT on chronic anticoagulation, hypertension, Type II DM, chronic venous stasis and lymphedema, presenting to the emergency department for evaluation of worsening bilateral lower extremity edema, sores to legs. Patient was seen by his wellness trainer today and referred here for further evaluation and management. Patient reports he had 2-week history of worsening blisters to bilateral lower extremities, redness and weeping of fluid from the legs. He reports history of peripheral neuropathy and does mild soreness to the legs. No significant pain. He does endorse tenderness and paresthesias which are chronic for him. Patient reports left foot wound ulceration which is improved. Patient states he has been wearing compression socks without improvement in his symptoms. He does go to the lymphedema clinic associated with this hospital as well. Patient states he had a recent arterial study which was negative. He has been compliant with his medication including his anticoagulation. PT denies fever, chills, nausea or vomiting. He denies pain. Per chart review, patient with bilateral normal brachial indexes bilaterally this month. Related Data Home Medications Medication Instructions Recorded Confirmed diphenhydramine HCl 50 mg capsule 50 mg PO BID 06/25/19 07/13/22 multivitamin 1 tablet PO DAILY 06/25/19 07/13/22 omega-3 fatty acids 1,000 mg 1,000 mg PO BID 06/25/19 07/13/22 capsule (Fish Oil Concentrate) fluticasone propionate 50 2 spray intranasal DAILY 07/29/19 07/13/22 mcg/actuation nasal spray,suspension (Flonase Allergy Relief) glucosamine-chondroitin 250 mg-200 1 tablet PO BID 11/25/19 07/13/22 mg tablet (Osteo Bi-Flex) psyllium husk 3.4 gram/5.4 gram 1 tbsp PO DAILY 07/10/22 07/13/22 oral powder (Metamucil) Metamucil 07/13/22 Allergies Allergy/AdvReac Type Severity Reaction Status Date / Time No Known Allergies Allergy Unknown Verified 08/23/22 17:53 Review of Systems Review of Systems: CONSTITUTIONAL: Denies fever, chills, or sweats. EYES: Denies visual changes, redness, or discharge. ENT: Denies rhinorrhea, congestion, sore throat, or otalgia. CARDIOVASCULAR: Denies chest pain, palpitations, reports worsening leg edema RESPIRATORY: Denies cough or dyspnea. GASTROINTESTINAL: Denies abdominal pain, nausea, vomiting, or diarrhea. GENITOURINARY: Denies dysuria or hematuria. SKIN: Reports redness, blistering to bilateral lower extremities MUSCULOSKELETAL: Denies back pain, joint pain, or myalgia. NEUROLOGIC: Denies headache, reports chronic peripheral neuropathy this [facility] Past Medical History Medical History Allergies Arthritis Bilateral lower extremity edema Cataract fragments in both eyes following surgery Chronic total retinal detachment Chronic venous stasis dermatitis of both lower extremities GERD (gastroesophageal reflux disease) History of DVT (deep vein thrombosis) Hypertension Testicular cancer Type 2 diabetes mellitus Surgical History Surgical History H/O hernia repair History of cataract surgery Left: August 2019 Right: February 2020 History of knee surgery History of vasectomy Family History Family History Father Diabetes mellitus Family history of congestive heart failure Mother Diabetes mellitus Unknown Family history of bladder cancer Social History Social History Social History: Caffeine-coffee daily Smoking status: Former smoker
[2022-08-23 18:52] LABS: Basophils Percent Auto 0.8 % (0.2-1.2); Eosinophils Absolute Auto 0.1 K/mm3 (0-0.3); Hematocrit 33.2 % (42.0-52.0); Hemoglobin 10.4 g/dL (14.0-18.0); Immature Granulocyte Absolute 0.02 K/mm3 (0.00-0.031); Immature Granulocyte Percent A 0.4 % (0-0.5); Lymphocytes Absolute Auto 1.28 K/mm3 (0.9-3.2); Lymphocytes Percent Auto 27.1 % (18.3-44.2); Mean Corpuscular HGB Conc 31.3 g/dl (32-36); Mean Corpuscular Hemoglobin 33.7 pg (26-34); Mean Corpuscular Volume 107.4 fl (80-100); Mean Platelet Volume 10.2 fl (7.4-10.4); Monocytes Absolute Auto 0.7 K/mm3 (0.1-0.6); Monocytes Percent Auto 14.4 % (2.6-8.5); Neutrophils Absolute Auto 2.6 K/mm3 (1.3-6.7); Neutrophils Percent Auto 54.3 % (45.5-73.1); Platelet Count Result 241 k/mm3 (150-375); Red Blood Count 3.09 M/mm3 (4.6-6.20); Red Cell Distribution Width 16.2 % (11.5-14.5); White Blood Count 4.7 K/mm3 (4.5-10.0)
[2022-08-23 18:59] LABS: Alanine Aminotransferase 15 U/L (6-50); Albumin Level 3.6 g/dL (3.5-5.1); Alkaline Phosphatase 119 U/L (38-126); Anion Gap 6 mmol/L (8-16); Aspartate Amino Transferase 21 U/L (17-59); Bilirubin,Total 0.8 mg/dL (0.2-1.3); Blood Urea Nitrogen 14 mg/dL (9-20); Calcium 8.7 mg/dL (8.4-10.2); Carbon Dioxide 29 mmol/L (22-30); Chloride 108 mmol/L (98-107); Estimated CRCL calculation 121 ml/min; Estimated Glomerular Filt Rate > 60; Glucose 110 mg/dL (65-110); Potassium 3.6 mmol/L (3.4-5.0); Sodium 143 mmol/L (137-145)
[2022-08-23 19:01] LABS: CRP 6.9 mg/dL (<1.0)
[2022-08-23 19:09] LABS: NT Pro B Type Natriuretic Pept 3020 pg/mL (19.9-100)
[2022-08-23 19:27] LABS: Erythrocyte Sedimentation Rate 118 mm/hr (0-20)
[2022-08-23 19:30] LABS: Macrocytosis 1+ (NORMAL); Ovalocytes 1+ (NORMAL); Platelet Estimate Adequate (Adequate); Schistocytes None Seen (NORMAL)
[2022-08-23] MEDS: ACETAMINOPHEN 500 MG TABLET 1000 MG PO (19:40)
[2022-08-23] MEDS: FUROSEMIDE INJ 40 MG/4 ML VIAL IV PUSH (19:41)
--- NOTE | 2022-08-23 19:56 | PM.IMHP ---
H&P: HPI History of Present Illness Date/Time: 08/23/22 19:56 Chief Complaint: Worsening edema Narrative: This is a 72-year-old male with past medical history significant for chronic bilateral lower extremity lymphedema, hypertension, GERD, DVT, type diabetes mellitus, left foot chronic ulcer. Patient presents to the emergency room due to worsening bilateral lower extremity edema with skin slough off, patient uses a walker as an aid, sleeps in a recliner. Patient denies PND, orthopnea, no chest pain, no cough, no fevers, no chills, no rigors, no night sweats. Preliminary workup was significant for bilateral lower extremity Doppler ultrasound was negative for acute deep vein thrombosis. CBC hemoglobin of 10 hematocrit 33 MCV 107. Patient is been admitted for further evaluation management and treatment. Review of Systems Review of Systems: Worsening bilateral lower extremity edema, skin slough off Constitutional: Constitutional: Denies chills, Denies fever(s), Denies malaise, Denies night sweats, Denies poor appetite and Denies weakness Eyes: Eyes: Denies change in vision ENT: Denies dysphagia, Denies vertigo, Denies dizziness and Denies odynophagia Cardiovascular: Cardiovascular: Denies chest pain, Reports leg edema and Denies lightheadedness Respiratory: Respiratory: Denies chest congestion, Denies cough and Denies excessive phlegm production Gastrointestinal: Gastrointestinal: Denies abdominal pain, Denies dyspepsia, Denies heartburn, Denies diarrhea, Denies nausea and Denies vomiting Genitourinary: Genitourinary: Denies dysuria Musculoskeletal: Musculoskeletal: Reports other (Bilateral lower extremity worsening swelling) Integumentary/Breasts: Skin/Breast: Reports erythema, Reports skin ulcer and Reports wounds (Skin tears) Neurologic: Denies focal weakness and Denies Sensory deficit (Neuro) Psychiatric: Psychiatric: Reports no additional psychiatric complaints and Reports as per HPI Endocrine: Endocrine: Denies cold intolerance, Denies flushing, Denies heat intolerance, Denies polyphagia, Denies polydipsia and Denies palpitations Hematologic/Lymphatic: Hematologic/Lymphatic: Reports no additional hematologic/lymphatic complaints and Reports as per HPI Allergic/Immunologic: Allergic/Immunologic: Reports no additional allergic/immunologic complaints and Reports as per HPI PMFSH Past Medical History Medical History Allergies Arthritis Bilateral lower extremity edema Cataract fragments in both eyes following surgery Chronic total retinal detachment Chronic venous stasis dermatitis of both lower extremities GERD (gastroesophageal reflux disease) History of DVT (deep vein thrombosis) Hypertension Testicular cancer Type 2 diabetes mellitus Surgical History Surgical History H/O hernia repair History of cataract surgery Left: August 2019 Right: February 2020 History of knee surgery History of vasectomy Family History Family History (Updated 08/23/22 @ 23:06 by Kaushal Brewer RN) Father Diabetes mellitus Family history of congestive heart failure Mother Diabetes mellitus Unknown Obesity Grandparent Family history of bladder cancer Social History Social History Social History: Caffeine-coffee daily Smoking status: Never smoker Smoking end date: 06/03/97 Alcohol intake: current Drinks per week: 14 Alcohol use details: 3 drinks every day, gin Substance use: current Substance use type: marijuana Lack of Transportation: No Lack of Food: Never True Current Housing: I Have Housing Concerned About Future Housing: No Difficulty Paying Gas/Electric Bills: No Difficulty Paying for Meds: No Currently Unemployed: No Education: High School Diploma/GED Difficulty w/ Childcare or Family Care: No Spiritual care
--- NOTE | 2022-08-23 22:18 | PC.NURSE ---
Patient arrived on 3 Med-Surg at 22:10 on 08/23/2022
[2022-08-23] MEDS: ACETAMINOPHEN 325 MG TABLET 650 MG PO (22:36)
--- NOTE | 2022-08-24 | ECHO_ITS ---
Patient Info Name: Nicholas Cross Age: 72 years : 1950 Gender: Male Ht: 68 in Wt: 199 lbs BSA: 2.11 m2 HR: 92 bpm BP: 149 / 68 mmHg Heart Rhythm: Indeterminant Technical Quality: Fair Exam Date: 08/24/2022 1:27 PM Exam Location: [facility] Room: 321 Patient Status: Inpatient Admit Date: 08/23/2022 Staff Ordering Physician: Darien Strauss MD Warehouse Driver: Sangita Lemus RDCS Attending Provider: Darien Strauss MD Referring Physician: Rica BANKS; Exam Type: CA echo doppler color flow Study Info Indications - elevated troponins YADIEL Complete two-dimensional, color flow and Doppler transthoracic echocardiogram is performed. Summary 1. Complete two-dimensional, color flow and Doppler transthoracic echocardiogram is performed. 2. Left ventricular hypertrophy with preserved systolic function and diastolic noncompliance. 3. Biatrial dilation. 4. Mildly sclerotic aortic valve which is nonstenotic. 5. RV enlargement. 6. Tricuspid regurgitation velocity analysis suggests RV systolic pressures of 54. Left Ventricle Left ventricular chamber dimension is normal. Left ventricular systolic function is normal, estimated at Empty. There is moderate concentric increased left ventricular wall thickness. The left ventricular diastolic function is abnormal. Right Ventricle Right ventricular chamber dimension is mildly enlarged. Left Atria Left atrial chamber dimension is moderately enlarged. Right Atria Right atrial chamber dimension is moderately enlarged. Aortic Valve The aortic valve is trileaflet. There is mild aortic valve sclerosis. Pulmonic Valve The pulmonic valve is normal. Mitral Valve The mitral valve has normal leaflets. There is trace mitral valve regurgitation. Tricuspid Valve The tricuspid valve leaflets are normal. There is mild tricuspid valve regurgitation. Moderate pulmonary hypertension, estimated pulmonary arterial systolic pressure is 54 mmHg. Pericardium/Pleural The pericardium appears normal. Aorta The aortic root size at the sinus of Valsalva is normal. Left Ventricular Outflow Tract Name Value Normal LVOT 2D LVOT Diameter 2.1 cm LVOT Doppler LVOT Peak Gradient 3 mmHg LVOT Mean Gradient 2 mmHg LVOT VTI 17 cm LVOT VTI/AV VTI Ratio 0.9 LVOT Stroke Volume 62 ml LVOT CO 14.5 l/min LVOT CI 6.9 l/min/m2 Pulmonic Valve Name Value Normal PV Doppler PV Peak Gradient 3 mmHg Mitral Valve Name Value Normal
[2022-08-24] MEDS: APIXABAN 2.5 MG TABLET PO ×3 (00:42→17:27)
[2022-08-24 01:09] VITALS: PULSE 100
[2022-08-24] MEDS: PROPRANOLOL HCL 60 MG CAPSULE CR PO (01:09)
[2022-08-24 02:51] VITALS: BP 149/68; PULSE 95; RESP 18; TEMP 36.2; O2SAT 97
[2022-08-24] MEDS: PSYLLIUM POWDER PACKET 1 PACKET PO (09:10)
[2022-08-24] MEDS: FINASTERIDE 5 MG TABLET BY MOUTH (09:10)
[2022-08-24] MEDS: OMEGA 3 POLYUNSAT FATTY ACIDS 1 GM CAP PO (09:10)
[2022-08-24] MEDS: LOSARTAN POTASSIUM 100 MG TABLET PO (09:11)
[2022-08-24] MEDS: FUROSEMIDE INJ 40 MG/4 ML VIAL IV PUSH ×2 (09:11→17:27)
[2022-08-24] MEDS: PANTOPRAZOLE 40 MG TABLET PO (09:11)
[2022-08-24] MEDS: MULTIVITAMINS THERAPEUTIC TAB (*BKC) 1 TABLET PO (09:11)
[2022-08-24] MEDS: ACETAMINOPHEN 325 MG TABLET 650 MG PO ×3 (09:13→20:09)
[2022-08-24] MEDS: diphenhydrAMINE HCl CAP 25 MG CAPSULE 50 MG PO ×2 (09:14→17:29)
--- NOTE | 2022-08-24 10:30 | PM.IMPN ---
Progress Note: A&P Assessment and Plan (1) Congestive heart failure: Code(s): I50.9 - Heart failure, unspecified Status: Acute Assessment and Plan: BNP 3520 venous Dopplers performed showed edema both lower extremities echo ordered and pending furosemide IV 40 mg b.i.d. trend daily weights trend urine output appears to be acute on chronic diastolic heart failure and exacerbation continue propanolol, losartan (2) Gait instability: Code(s): R26.81 - Unsteadiness on feet Status: Acute Assessment and Plan: Likely secondary to worsening bilateral lower extremity edema Patient uses a walker PT and OT (3) Diabetic ulcer of foot associated with type 2 diabetes mellitus, limited to breakdown of skin: Qualifiers: Diabetic foot ulcer location: unspecified part of foot Laterality: left Qualified Code(s): E11.621 - Type 2 diabetes mellitus with foot ulcer; L97.521 - Non-pressure chronic ulcer of other part of left foot limited to breakdown of skin Code(s): E11.621 - Type 2 diabetes mellitus with foot ulcer; L97.501 - Non-pressure chronic ulcer of other part of unspecified foot limited to breakdown of skin Status: Acute Assessment and Plan: Local care Wound care and ostomy consult stable continue outpatient treatment (4) Chronic venous stasis dermatitis of both lower extremities: Code(s): I87.2 - Venous insufficiency (chronic) (peripheral) Status: Acute Assessment and Plan: Wound care and ostomy consult (5) GERD (gastroesophageal reflux disease): Qualifiers: Esophagitis presence: without esophagitis Qualified Code(s): K21.9 - Gastro-esophageal reflux disease without esophagitis Code(s): K21.9 - Gastro-esophageal reflux disease without esophagitis Status: Acute Assessment and Plan: PPI as needed Time Spent With Patient Time: 53 minutes Time with patient: Greater than 35 minutes Subjective Date/time seen: 08/24/22 1030 Interval history: 08/24/22 1030 patient was lying in bed. Patient states he feels better however his legs are very swollen, Red and warm with multiple areas of open wounds. He denies any current chest pain, nausea, vomiting, diarrhea constipation. He did state that he had some shortness of breath which is been more recent change for him. He also stated that he has chronic diarrhea. Currently he is being diuresed. Wound Care Also seen him. 08/23/22? 19:56 This is a 72-year-old male with past medical history significant for chronic bilateral lower extremity lymphedema, hypertension, GERD, DVT, type diabetes mellitus, left foot chronic ulcer.? Patient presents to the emergency room due to worsening bilateral lower extremity edema with skin slough off, patient uses a walker as an aid, sleeps in a recliner.? Patient denies PND, orthopnea, no chest pain, no cough, no fevers, no chills, no rigors, no night sweats.? Preliminary workup was significant for bilateral lower extremity Doppler ultrasound was negative for acute deep vein thrombosis.? CBC hemoglobin of 10 hematocrit 33 MCV 107.? Patient is been admitted for further evaluation management and treatment. Review of Systems Review of Systems: All systems reviewed & are unremarkable except as noted in HPI and below Exam Narrative: General: well-nourished, well-appearing 72-year-old male, laying in bed, comfortable, NARD Neuro: awake, alert and oriented x4, speech clear, no focal neuro deficits noted HEENMT: normocephalic, atraumatic, EOMI, sclerae anicteric, moist oral mucosa Respiratory: Clear to auscultation bilaterally without crackles, rhonchi or wheezes, nonlabored breathing Cardio: regular rate, regular rhythm with S1-S2 Abdomen: nondistended, normoactive bowel sounds, soft, nontender to palpation Extremities: 3-4+ pittin
[2022-08-24] MEDS: BETAMETHASONE/CLOTRIMAZOLE CR 15 GM TUBE 1 APPLIC TOPICAL ×2 (11:37→21:10)
[2022-08-24 14:46] VITALS: BMI 30.9
[2022-08-24 15:07] VITALS: BP 138/85; PULSE 85; RESP 16; TEMP 36.7; O2SAT 100
[2022-08-24 21:05] VITALS: BP 112/59; PULSE 82; RESP 20; TEMP 37.2; O2SAT 96
[2022-08-25 06:00] VITALS: BP 157/96; PULSE 73; RESP 20; TEMP 36.5; O2SAT 100
[2022-08-25 07:14] LABS: Basophils Percent Auto 0.2 % (0.2-1.2); Hemoglobin 9.6 g/dL (14.0-18.0); Immature Granulocyte Absolute 0.01 K/mm3 (0.00-0.031); Immature Granulocyte Percent A 0.2 % (0-0.5); Lymphocytes Percent Auto 22.4 % (18.3-44.2); Mean Corpuscular Hemoglobin 32.5 pg (26-34); Mean Corpuscular Volume 105.1 fl (80-100); Mean Platelet Volume 10.2 fl (7.4-10.4); Monocytes Absolute Auto 0.5 K/mm3 (0.1-0.6); Monocytes Percent Auto 12.7 % (2.6-8.5); Neutrophils Absolute Auto 2.5 K/mm3 (1.3-6.7); Neutrophils Percent Auto 63.5 % (45.5-73.1); Platelet Count Result 203 k/mm3 (150-375); Red Blood Count 2.95 M/mm3 (4.6-6.20); Red Cell Distribution Width 15.9 % (11.5-14.5)
[2022-08-25 07:30] LABS: Alanine Aminotransferase 12 U/L (6-50); Albumin Level 3.1 g/dL (3.5-5.1); Alkaline Phosphatase 85 U/L (38-126); Anion Gap 4 mmol/L (8-16); Aspartate Amino Transferase 22 U/L (17-59); Bilirubin,Total 0.8 mg/dL (0.2-1.3); Blood Urea Nitrogen 16 mg/dL (9-20); Calcium 8.3 mg/dL (8.4-10.2); Carbon Dioxide 34 mmol/L (22-30); Chloride 102 mmol/L (98-107); Estimated CRCL calculation 123 ml/min; Estimated Glomerular Filt Rate > 60; Glucose 144 mg/dL (65-110); Magnesium 1.5 mg/dL (1.6-2.3); Potassium 3.6 mmol/L (3.4-5.0); Sodium 140 mmol/L (137-145)
[2022-08-25] MEDS: PSYLLIUM POWDER PACKET 1 PACKET PO (08:23)
[2022-08-25] MEDS: OMEGA 3 POLYUNSAT FATTY ACIDS 1 GM CAP PO (08:23)
[2022-08-25] MEDS: diphenhydrAMINE HCl CAP 25 MG CAPSULE 50 MG PO ×2 (08:23→16:29)
[2022-08-25] MEDS: FINASTERIDE 5 MG TABLET BY MOUTH (08:24)
[2022-08-25] MEDS: FUROSEMIDE INJ 40 MG/4 ML VIAL IV PUSH ×2 (08:24→16:29)
[2022-08-25] MEDS: PANTOPRAZOLE 40 MG TABLET PO (08:24)
[2022-08-25] MEDS: LOSARTAN POTASSIUM 100 MG TABLET PO (08:24)
[2022-08-25] MEDS: APIXABAN 2.5 MG TABLET PO ×2 (08:24→16:29)
[2022-08-25] MEDS: MULTIVITAMINS THERAPEUTIC TAB (*BKC) 1 TABLET PO (08:24)
[2022-08-25] MEDS: ACETAMINOPHEN 325 MG TABLET 650 MG PO ×3 (09:15→18:53)
[2022-08-25] MEDS: MAGNESIUM SULF 2 GM/WATER 50ML 2 GM/50 ML BAG IVPB (09:16)
[2022-08-25 09:18] LABS: Hypochromasia 2+ (NORMAL); Macrocytosis 1+ (NORMAL); Platelet Estimate Adequate (Adequate)
[2022-08-25 09:19] LABS: Anisocytosis 1+ (NORMAL); Schistocytes None Seen (NORMAL)
[2022-08-25] MEDS: BETAMETHASONE/CLOTRIMAZOLE CR 15 GM TUBE 1 APPLIC TOPICAL ×2 (10:54→20:09)
--- NOTE | 2022-08-25 11:45 | PM.IMPN ---
Progress Note: A&P Assessment and Plan (1) Congestive heart failure: Code(s): I50.9 - Heart failure, unspecified Status: Acute Assessment and Plan: BNP 3520 venous Dopplers performed showed edema both lower extremities echo pending rate furosemide IV 40 mg b.i.d. continued I&Os show 4 L off trend daily weights trend urine output appears to be acute on chronic diastolic heart failure and exacerbation continue propanolol, losartan (2) Gait instability: Code(s): R26.81 - Unsteadiness on feet Status: Acute Assessment and Plan: Likely secondary to worsening bilateral lower extremity edema Patient uses a walker PT and OT (3) Diabetic ulcer of foot associated with type 2 diabetes mellitus, limited to breakdown of skin: Qualifiers: Diabetic foot ulcer location: unspecified part of foot Laterality: left Qualified Code(s): E11.621 - Type 2 diabetes mellitus with foot ulcer; L97.521 - Non-pressure chronic ulcer of other part of left foot limited to breakdown of skin Code(s): E11.621 - Type 2 diabetes mellitus with foot ulcer; L97.501 - Non-pressure chronic ulcer of other part of unspecified foot limited to breakdown of skin Status: Acute Assessment and Plan: Local care Wound care and ostomy consult stable continue outpatient treatment (4) Chronic venous stasis dermatitis of both lower extremities: Code(s): I87.2 - Venous insufficiency (chronic) (peripheral) Status: Acute Assessment and Plan: Wound care and ostomy consult (5) GERD (gastroesophageal reflux disease): Qualifiers: Esophagitis presence: without esophagitis Qualified Code(s): K21.9 - Gastro-esophageal reflux disease without esophagitis Code(s): K21.9 - Gastro-esophageal reflux disease without esophagitis Status: Acute Assessment and Plan: PPI as needed Plan yeast noted to the bilateral lower extremities continue cream Time Spent With Patient Time: 42 minutes Time with patient: Greater than 35 minutes Subjective Date/time seen: 08/25/22 114 Interval history: 08/25/221144 The patient actually appears to be doing okay. His legs do appear to be getting less red and the swelling does appear to be stabilizing. He did have a lot of questions this morning which all were answered. he did mention that he was having issues with being short of breath at the end of a sentence which he does appear to be short of breath at that time. He did state that his legs got very swollen in which is when the blistering started. He currently denies any chest pain, nausea, vomiting, diarrhea or constipation. He would also like to try going to rehab for further strengthening as well. 08/24/22 1030 patient was lying in bed. Patient states he feels better however his legs are very swollen, Red and warm with multiple areas of open wounds. He denies any current chest pain, nausea, vomiting, diarrhea constipation. He did state that he had some shortness of breath which is been more recent change for him. He also stated that he has chronic diarrhea. Currently he is being diuresed. Wound Care Also seen him. 08/23/22? 19:56 This is a 72-year-old male with past medical history significant for chronic bilateral lower extremity lymphedema, hypertension, GERD, DVT, type diabetes mellitus, left foot chronic ulcer.? Patient presents to the emergency room due to worsening bilateral lower extremity edema with skin slough off, patient uses a walker as an aid, sleeps in a recliner.? Patient denies PND, orthopnea, no chest pain, no cough, no fevers, no chills, no rigors, no night sweats.? Preliminary workup was significant for bilateral lower extremity Doppler ultrasound was negative for acute deep vein thrombosis.? CBC hemoglobin of 10 hematocrit 33 MCV 107.? Anne
[2022-08-25 14:00] VITALS: BP 140/72; PULSE 92; RESP 16; TEMP 36.3; O2SAT 97
[2022-08-25 21:38] VITALS: BP 91/68; PULSE 93; RESP 18; TEMP 36.3; O2SAT 96
[2022-08-26 05:49] VITALS: BP 158/88; PULSE 80; RESP 20; TEMP 36.6; O2SAT 100
[2022-08-26 07:22] LABS: Basophils Percent Auto 0.4 % (0.2-1.2); Eosinophils Percent Auto 0.8 % (0-4.4); Hematocrit 31.8 % (42.0-52.0); Immature Granulocyte Absolute 0.01 K/mm3 (0.00-0.031); Immature Granulocyte Percent A 0.2 % (0-0.5); Lymphocytes Absolute Auto 1.05 K/mm3 (0.9-3.2); Mean Corpuscular HGB Conc 31.4 g/dl (32-36); Mean Corpuscular Hemoglobin 32.7 pg (26-34); Mean Corpuscular Volume 103.9 fl (80-100); Mean Platelet Volume 10.1 fl (7.4-10.4); Monocytes Absolute Auto 0.5 K/mm3 (0.1-0.6); Monocytes Percent Auto 10.3 % (2.6-8.5); Neutrophils Absolute Auto 3.2 K/mm3 (1.3-6.7); Neutrophils Percent Auto 66.3 % (45.5-73.1); Platelet Count Result 214 k/mm3 (150-375); Red Blood Count 3.06 M/mm3 (4.6-6.20); Red Cell Distribution Width 15.7 % (11.5-14.5); White Blood Count 4.8 K/mm3 (4.5-10.0)
[2022-08-26 07:48] LABS: Alanine Aminotransferase 13 U/L (6-50); Albumin Level 3.2 g/dL (3.5-5.1); Alkaline Phosphatase 93 U/L (38-126); Anion Gap 3 mmol/L (8-16); Aspartate Amino Transferase 21 U/L (17-59); Bilirubin,Total 0.6 mg/dL (0.2-1.3); Blood Urea Nitrogen 21 mg/dL (9-20); Calcium 8.5 mg/dL (8.4-10.2); Carbon Dioxide 38 mmol/L (22-30); Chloride 97 mmol/L (98-107); Estimated CRCL calculation 123 ml/min; Estimated Glomerular Filt Rate > 60; Glucose 141 mg/dL (65-110); Magnesium 1.7 mg/dL (1.6-2.3); Potassium 3.6 mmol/L (3.4-5.0); Sodium 138 mmol/L (137-145)
[2022-08-26] MEDS: PSYLLIUM POWDER PACKET 1 PACKET PO (08:55)
[2022-08-26] MEDS: PANTOPRAZOLE 40 MG TABLET PO (08:55)
[2022-08-26] MEDS: FINASTERIDE 5 MG TABLET BY MOUTH (08:55)
[2022-08-26] MEDS: BETAMETHASONE/CLOTRIMAZOLE CR 15 GM TUBE 1 APPLIC TOPICAL ×2 (08:55→20:06)
[2022-08-26] MEDS: FUROSEMIDE INJ 40 MG/4 ML VIAL IV PUSH ×2 (08:55→17:12)
[2022-08-26] MEDS: LOSARTAN POTASSIUM 100 MG TABLET PO (08:55)
[2022-08-26] MEDS: PROPRANOLOL HCL 60 MG CAPSULE CR PO (08:55)
[2022-08-26] MEDS: OMEGA 3 POLYUNSAT FATTY ACIDS 1 GM CAP PO (08:55)
[2022-08-26] MEDS: diphenhydrAMINE HCl CAP 25 MG CAPSULE 50 MG PO ×2 (08:56→17:13)
[2022-08-26] MEDS: APIXABAN 2.5 MG TABLET PO ×2 (08:56→17:13)
[2022-08-26] MEDS: MULTIVITAMINS THERAPEUTIC TAB (*BKC) 1 TABLET PO (08:56)
--- NOTE | 2022-08-26 10:15 | PM.IMPN ---
Progress Note: A&P Assessment and Plan (1) Congestive heart failure: Code(s): I50.9 - Heart failure, unspecified Status: Acute Assessment and Plan: BNP 3520 venous Dopplers performed showed edema both lower extremities echo preserved EF with diastolic dysfunction furosemide IV 40 mg b.i.d. continued I&Os show 4 L off trend daily weights trend urine output appears to be acute on chronic diastolic heart failure and exacerbation continue propanolol, losartan (2) Gait instability: Code(s): R26.81 - Unsteadiness on feet Status: Acute Assessment and Plan: Likely secondary to worsening bilateral lower extremity edema Patient uses a walker PT and OT (3) Diabetic ulcer of foot associated with type 2 diabetes mellitus, limited to breakdown of skin: Qualifiers: Diabetic foot ulcer location: unspecified part of foot Laterality: left Qualified Code(s): E11.621 - Type 2 diabetes mellitus with foot ulcer; L97.521 - Non-pressure chronic ulcer of other part of left foot limited to breakdown of skin Code(s): E11.621 - Type 2 diabetes mellitus with foot ulcer; L97.501 - Non-pressure chronic ulcer of other part of unspecified foot limited to breakdown of skin Status: Acute Assessment and Plan: Local care Wound care and ostomy consult stable continue outpatient treatment (4) Chronic venous stasis dermatitis of both lower extremities: Code(s): I87.2 - Venous insufficiency (chronic) (peripheral) Status: Acute Assessment and Plan: Wound care and ostomy consult (5) GERD (gastroesophageal reflux disease): Qualifiers: Esophagitis presence: without esophagitis Qualified Code(s): K21.9 - Gastro-esophageal reflux disease without esophagitis Code(s): K21.9 - Gastro-esophageal reflux disease without esophagitis Status: Acute Assessment and Plan: PPI as needed Plan yeast noted to the bilateral lower extremities continue cream Time Spent With Patient Time: 37 minutes Time with patient: Greater than 35 minutes Subjective Date/time seen: 08/26/22 1015 Interval history: 08/26/22 1015 Went over test results and labs the patient. Answered all his questions about his echo and told him the findings. He does seem to be diuresing well. Currently he denies any chest pain, nausea, vomiting, diarrhea or constipation. He did state that he gets a little short at the end of a sentence with breathing. Will converted to p.o. Lasix tomorrow. 08/25/22 1145 The patient actually appears to be doing okay. His legs do appear to be getting less red and the swelling does appear to be stabilizing. He did have a lot of questions this morning which all were answered. he did mention that he was having issues with being short of breath at the end of a sentence which he does appear to be short of breath at that time. He did state that his legs got very swollen in which is when the blistering started. He currently denies any chest pain, nausea, vomiting, diarrhea or constipation. He would also like to try going to rehab for further strengthening as well. 08/24/22 1030 patient was lying in bed. Patient states he feels better however his legs are very swollen, Red and warm with multiple areas of open wounds. He denies any current chest pain, nausea, vomiting, diarrhea constipation. He did state that he had some shortness of breath which is been more recent change for him. He also stated that he has chronic diarrhea. Currently he is being diuresed. Wound Care Also seen him. 08/23/22? 19:56 This is a 72-year-old male with past medical history significant for chronic bilateral lower extremity lymphedema, hypertension, GERD, DVT, type diabetes mellitus, left foot chronic ulcer.? Patient presents to the emergency room due to wor
[2022-08-26 14:00] VITALS: BP 135/89; PULSE 73; RESP 18; TEMP 36.1; O2SAT 98
[2022-08-26] MEDS: ACETAMINOPHEN 325 MG TABLET 650 MG PO (15:15)
[2022-08-26 19:27] VITALS: O2SAT 98
[2022-08-26 21:28] VITALS: BP 140/70; PULSE 78; RESP 18; TEMP 36.5; O2SAT 97
[2022-08-27 05:20] VITALS: BP 141/82; PULSE 67; RESP 18; TEMP 36.2; O2SAT 98
[2022-08-27 06:44] LABS: Basophils Percent Auto 0.6 % (0.2-1.2); Eosinophils Absolute Auto 0.1 K/mm3 (0-0.3); Eosinophils Percent Auto 2.8 % (0-4.4); Hematocrit 33.3 % (42.0-52.0); Hemoglobin 10.3 g/dL (14.0-18.0); Immature Granulocyte Absolute 0.01 K/mm3 (0.00-0.031); Immature Granulocyte Percent A 0.2 % (0-0.5); Lymphocytes Absolute Auto 1.39 K/mm3 (0.9-3.2); Lymphocytes Percent Auto 27.5 % (18.3-44.2); Mean Corpuscular HGB Conc 30.9 g/dl (32-36); Mean Corpuscular Hemoglobin 33.1 pg (26-34); Mean Corpuscular Volume 107.1 fl (80-100); Mean Platelet Volume 9.9 fl (7.4-10.4); Monocytes Absolute Auto 0.7 K/mm3 (0.1-0.6); Monocytes Percent Auto 13.8 % (2.6-8.5); Neutrophils Absolute Auto 2.8 K/mm3 (1.3-6.7); Neutrophils Percent Auto 55.1 % (45.5-73.1); Platelet Count Result 220 k/mm3 (150-375); Red Blood Count 3.11 M/mm3 (4.6-6.20); Red Cell Distribution Width 15.6 % (11.5-14.5); White Blood Count 5.1 K/mm3 (4.5-10.0)
[2022-08-27 06:58] LABS: Alanine Aminotransferase 14 U/L (6-50); Albumin Level 3.2 g/dL (3.5-5.1); Alkaline Phosphatase 95 U/L (38-126); Anion Gap 6 mmol/L (8-16); Aspartate Amino Transferase 23 U/L (17-59); Bilirubin,Total 0.6 mg/dL (0.2-1.3); Blood Urea Nitrogen 24 mg/dL (9-20); Calcium 8.7 mg/dL (8.4-10.2); Carbon Dioxide 39 mmol/L (22-30); Chloride 94 mmol/L (98-107); Estimated CRCL calculation 104 ml/min; Estimated Glomerular Filt Rate > 60; Glucose 127 mg/dL (65-110); Magnesium 1.7 mg/dL (1.6-2.3); Potassium 3.5 mmol/L (3.4-5.0); Sodium 139 mmol/L (137-145)
[2022-08-27] MEDS: APIXABAN 2.5 MG TABLET PO (09:39)
[2022-08-27] MEDS: FINASTERIDE 5 MG TABLET BY MOUTH (09:39)
[2022-08-27] MEDS: PANTOPRAZOLE 40 MG TABLET PO (09:39)
[2022-08-27] MEDS: FUROSEMIDE 40 MG TABLET PO (09:39)
[2022-08-27] MEDS: LOSARTAN POTASSIUM 100 MG TABLET PO (09:40)
[2022-08-27] MEDS: PSYLLIUM POWDER PACKET 1 PACKET PO (09:40)
[2022-08-27] MEDS: MULTIVITAMINS THERAPEUTIC TAB (*BKC) 1 TABLET PO (09:40)
[2022-08-27] MEDS: BETAMETHASONE/CLOTRIMAZOLE CR 15 GM TUBE 1 APPLIC TOPICAL (09:42)
[2022-08-27] MEDS: OMEGA 3 POLYUNSAT FATTY ACIDS 1 GM CAP PO (09:43)
[2022-08-27] MEDS: diphenhydrAMINE HCl CAP 25 MG CAPSULE 50 MG PO (09:44)
--- NOTE | 2022-08-27 10:15 | PM.DS ---
DS: Admitting Diagnosis Discharge Date 08/27/22 1015 Admitting Diagnosis CHF exacerbation, yeast infection of the legs DS: Discharge Diagnosis Discharge Diagnosis (1) Congestive heart failure: Code(s): I50.9 - Heart failure, unspecified Status: Acute Assessment and Plan: BNP 3520 venous Dopplers performed showed edema both lower extremities echo preserved EF with diastolic dysfunction furosemide IV 40 mg b.i.d. continued I&Os show 4 L off trend daily weights trend urine output appears to be acute on chronic diastolic heart failure and exacerbation continue propanolol, losartan (2) Gait instability: Code(s): R26.81 - Unsteadiness on feet Status: Acute Assessment and Plan: Likely secondary to worsening bilateral lower extremity edema Patient uses a walker PT and OT (3) Diabetic ulcer of foot associated with type 2 diabetes mellitus, limited to breakdown of skin: Qualifiers: Diabetic foot ulcer location: unspecified part of foot Laterality: left Qualified Code(s): E11.621 - Type 2 diabetes mellitus with foot ulcer; L97.521 - Non-pressure chronic ulcer of other part of left foot limited to breakdown of skin Code(s): E11.621 - Type 2 diabetes mellitus with foot ulcer; L97.501 - Non-pressure chronic ulcer of other part of unspecified foot limited to breakdown of skin Status: Acute Assessment and Plan: Local care Wound care and ostomy consult stable continue outpatient treatment (4) Chronic venous stasis dermatitis of both lower extremities: Code(s): I87.2 - Venous insufficiency (chronic) (peripheral) Status: Acute Assessment and Plan: Wound care and ostomy consult (5) GERD (gastroesophageal reflux disease): Qualifiers: Esophagitis presence: without esophagitis Qualified Code(s): K21.9 - Gastro-esophageal reflux disease without esophagitis Code(s): K21.9 - Gastro-esophageal reflux disease without esophagitis Status: Acute Assessment and Plan: PPI as needed DS: Summary Hospital Course Hospital Course: Patient is 70-year-old male with past medical history bilateral lower extremity lymphedema, hypertension, GERD, DVT, diabetes, left foot ulcer who presented to the ED with complaints of bilateral lower extremity edema. Patient stated that it all started as swelling in then turned to blistering. He went for a follow-up appointment with Dr. Jason trejo who was concerned and sent the patient to the hospital. Lower extremity Doppler ultrasound was done and was negative for any DVT. Echo was performed and showed a preserved EF with some diastolic dysfunction. Patient was given IV Lasix 40 mg b.i.d. which has been converted to 40 mg p.o. daily. BNP upon arrival was 3520. Patient also did have some gait disturbances however has seem to be corrected with PT and OT support. Wound Care did see the patient and with the appearance of the blistering plus the redness of the legs it was determined that the patient had yeast infection. Patient was ordered Lotrisone cream which has been applied twice a day. Patient has been doing okay and is stable for discharge at this time. He denies any current chest pain, shortness a breath, nausea, vomiting, diarrhea, constipation, weakness or fatigue. Status at Discharge Functional status at discharge: uses cane/walker Overall status at discharge: patient is progressing back to baseline Time Spent with Patient Time attestation: Total time spent providing and/or coordinating discharge services: 42 minutes Time spent: Greater than 30 minutes Specific discharge activities: Diagnostic testing, chart review, developing a treatment plan, education, care coordination documentation, physical exam, result review Exam Narrative: General: well-nourished, well-appearing 72-year-ol
[2022-08-27 12:11] LABS: Glucose Point of Care 148 mg/dl (65-105)
--- NOTE | 2022-08-27 13:09 | P.CDI_ITS ---
CDI Query Clarification Request Not sure this is appropriate. BMI is 31, CHF with exacerbation noted, eating full meals, no loss of appetite noted with exam and interview. Disagree with this diagnosis at this time <MELI Ramirez - Last Filed: 08/28/22 07:15> Clarified Diagnosis Clarified Diagnosis: Nutritional Diagnostic Statement Severe protein calorie malnutrition related to chronic illness, loss of appetite as evidence by -13% weight loss/ 4 months; intakes <75% needs >1 month; mild muscle wasting to temporalis, clavicles. Please refer to Comprehensive Nutrition Assessment for more information. Please clarify severity of protein calorie malnutrition if known: * Mild * Moderate * Severe * Other/ Unspecified <Kiesha Lr RN - Last Filed: 08/27/22 13:14>
[2022-08-27 14:00] VITALS: BP 135/83; PULSE 80; RESP 16; TEMP 36.2; O2SAT 98
== END 2022-08-27 16:05 | disposition home health service (06) | DRG 291 ==
LOC: ANHED 20:10 → ANH3MEDSUR 21:38
PROVIDERS: Physician Assistant; Admitting Provider Internal Medicine; Emergency Provider Emergency Medicine; PCP Nurse Practitioner; Visit Provider Nurse Practitioner
DX: I11.0 Hypertensive heart disease with heart failure (principal); I50.33 Acute on chronic diastolic (congestive) heart failure; B37.2 Candidiasis of skin and nail; L97.521 Non-pressure chronic ulcer of other part of left foot limited to breakdown of skin; E11.621 Type 2 diabetes mellitus with foot ulcer; E11.42 Type 2 diabetes mellitus with diabetic polyneuropathy; I87.2 Venous insufficiency (chronic) (peripheral); K21.9 Gastro-esophageal reflux disease without esophagitis; R26.81 Unsteadiness on feet; Z85.47 Personal history of malignant neoplasm of testis; Z98.41 Cataract extraction status, right eye; Z98.42 Cataract extraction status, left eye; Z79.84 Long term (current) use of oral hypoglycemic drugs; Z86.718 Personal history of other venous thrombosis and embolism; Z79.01 Long term (current) use of anticoagulants
CPT/HCPCS: 36415; 80053; 82948; 83735; 83880; 85025; 85652; 86140; 93306; 93970; 96365; 96375; 96376; 97161; 97165; 97535; 99285; A9270; G0378; J0696; J1940; J3475

== ENCOUNTER 2023-06-07 10:19 | Outpatient (NON) | payer MEDICARE, SELFPAY ==
[2023-06-07 11:11] LABS: Appearance Urine Clear (Clear); Bacteria Urine None Seen /hpf; Bilirubin Urine Negative (Negative); Blood Urine 3+ (Negative); Color Urine Yellow (Yellow); Glucose Urine UA Negative (Negative); Ketones Urine Negative (Negative); Leukocyte Esterase Ur Trace LEU/UL (Negative); Nitrate Urine Negative (Negative); Non Pathogenic Casts 0-2; Protein Urine 1+ mg/dL (Negative); RBC Urine >100 /hpf (0-2); Specific Grav Ur 1.018 (1.001-1.035); Squamous Epithelial Cell Urine None seen /hpf (Few); Urobilinogen Urine 0.2 mg/dL (<2.0); WBC Urine 0-5 /hpf; pH Urine 5.5 (5.0-9.0)
[2023-06-07 11:27] LABS: Add Urine Microscopic? YES
== END 2023-06-07 10:20 | disposition home or self-care (01) ==
PROVIDERS: PCP Internal Medicine; Visit Provider Nurse Practitioner
DX: R31.9 Hematuria, unspecified (principal); I89.0 Lymphedema, not elsewhere classified
CPT/HCPCS: 81001

== ENCOUNTER 2023-06-11 09:40 | Inpatient (IN) | payer MEDICARE, SELFPAY ==
[2023-06-11] VITALS (43 sets, daily range): BP systolic 69–151; BP diastolic 41–104; PULSE 79–117; RESP 14–35; TEMP 36.8–37.6; O2SAT 81–100; BMI 33.5
--- NOTE | 2023-06-11 | ECHO_ITS ---
Patient Info Name: Nicholas Cross Age: 73 years : 1950 Gender: Male Ht: 68 in Wt: 220 lbs BSA: 2.22 m2 HR: 87 bpm BP: 136 / 77 mmHg Heart Rhythm: Atrial Fibrillation Technical Quality: Fair Exam Date: 06/11/2023 3:26 PM Exam Location: [facility] Patient Status: Inpatient Admit Date: 06/11/2023 Staff Ordering Physician: Salud Seay Hazmat Tanker Driver: Galina Russell RDCS Attending Provider: Brendan Cazares MD Referring Physician: Geena GARCIA; Exam Type: CA echo dop color flow w con Study Info Indications - sob Complete two-dimensional, color flow and Doppler transthoracic echocardiogram is performed with contrast to opacify the left ventricle and to improve the deliniation of the left ventricle endocardial borders. Contrast/Agitated Saline Contrast/Ag. Saline: Definity Amount: 2.00 ml Administered By: Galina Russell RDCS Existing IV Access: Yes IV Access Condition: patent with no signs of infiltration Summary 1. Technically difficult study. Definity contrast administered. 2. Left ventricular systolic function is moderately reduced, estimated at 35-40% with hypokinesis of the apical, apical septal, and apical anterior navarro. 3. Left ventricular chamber dimension is normal. 4. There is mildly increased left ventricular wall thickness. 5. Left ventricular septal wall motion is abnormal with septal motion related to bundle branch block. 6. The left ventricular diastolic function is indeterminate. 7. Left atrial chamber dimension is moderately enlarged. 8. Right atrial chamber dimension is severely enlarged. 9. There is mild mitral valve regurgitation. 10. There is mild tricuspid valve regurgitation. 11. Severe pulmonary hypertension, estimated pulmonary arterial systolic pressure is 67 mmHg. Left Ventricle Left ventricular systolic function is moderately reduced, estimated at 35-40% with hypokinesis of the apical, apical septal, and apical anterior navarro. Technically difficult study. Definity contrast administered. Left ventricular chamber dimension is normal. There is mildly increased left ventricular wall thickness. Left ventricular septal wall motion is abnormal with septal motion related to bundle branch block. The left ventricular diastolic function is indeterminate. Right Ventricle Right ventricular chamber dimension is mildly enlarged. Right ventricular systolic function is reduced. Left Atria Left atrial chamber dimension is moderately enlarged. Right Atria Right atrial chamber dimension is severely enlarged. Aortic Valve The aortic valve is not well visualized. There is mild aortic valve sclerosis. There is no aortic valve stenosis. There is trace aortic valve regurgitation. Pulmonic Valve The pulmonic valve is not well visualized. There is mild pulmonic regurgitation. Mitral Valve The mitral valve has thickened leaflets. There is mild mitral valve regurgitation. The mitral valve annulus is mildly calcified. Tricuspid Valve The tricuspid valve leaflets are normal. There is mild tricuspid valve regurgitation. Severe pulmonary hypertension, estimated pulmonary arterial systolic pressure is 67 mmHg. Pericardium/Pleural The pericardium appears epicardial fat pad. There is no pericardial effusion. Inferior Vena Cava Normal inferior vena cava with <50% collapse upon inspiration consistent with elevated right atrial pressure, 10 mmHg. Aorta The aortic root size at the sinus of Valsalva is normal. There is mild aortic atherosclerosis. Left Ventricular Outf
--- NOTE | ~2023-06-11 | XR_ITS ---
EXAMINATION: XR chest 1V portable DATE: 06/11/2023 08:38 INDICATION: Dyspnea. TECHNIQUE: A single frontal view of the chest was obtained. COMPARISON: Chest 2 views 04/19/2022, chest CT 04/24/2022 FINDINGS: There is chronic elevation of right hemidiaphragm. There is a small right pleural effusion. There is a diffuse interstitial pattern, consistent mild pulmonary edema. No pneumothorax. Cardiomeg brigido is noted. IMPRESSION: 1. Mild pulmonary edema. 2. Small right pleural effusion. 3. Cardiomegaly. Reviewed, dictated and finalized at location A. MOBILE RELOCATION ENGINEER
--- NOTE | ~2023-06-11 | CT_ITS ---
EXAMINATION: CTA chest PE protocol DATE: 06/11/2023 18:34 INDICATION: elevated d-dimer, hypoxia TECHNIQUE: Computed tomography angiography (CTA) of the chest was performed with 100 mL Omnipaque-350 intravenous contrast timed to evaluate the pulmonary arteries. Coronal maximum intensity projection 3D-reconstructions were created by the technologist. The dose-length product (DLP) was 758.39 mGy-cm. Automated exposure control and iterative reconstruction technique were employed. COMPARISON: X-ray chest same date; CT chest 04/24/2022. FINDINGS: Lung parenchyma and airways: Mild septal thickening. Mild scattered groundglass opacities. Dependent bilateral scar/atelectasis. Subsegmental right basilar consolidation. Pleura: Chronic hemidiaphragm elevation on the right. Small right and trace left pleural fluid collec tions. Thoracic inlet, axillae and chest wall: Unremarkable. Thoracic aorta: Minimal arch calcification. Mediastinum: Mediastinal and bilateral hilar lymphadenopathy. Dilated central pulmonary arteries as c an be seen with pulmonary arterial hypertension. Heart and pericardium: Cardiomegaly. No pericardial effusion.. Coronary artery calcifications: Absent. Upper abdomen: Cholelithiasis, with multiple edema/inflammation.. Bones: No acute osseous finding. Pulmonary arteries: Study quality: Adequate. No pulmonary emboli detected. IMPRESSION: No CT evidence of acute pulmonary embolus. Mild interstitial edema. Dependent right lung consolidation, likely atelectasis, infection not exclud ed. Mediastinal and bilateral hilar lymphadenopathy. Small right and trace left pleural effusions. Cholelithiasis with gallbladder wall edema/inflammation. Correlate with right upper quadrant pain and biliary labs. Consider right upper quadrant ultrasound. Reviewed, dictated and finalized at location K. LINES SUPERVISOR IMPRESSION: No CT evidence of acute pulmonary embolus. Mild interstitial edema. Dependent right lung consolidation, likely atelectasis , infection not excluded. Mediastinal and bilateral hilar lymphadenopathy. Small right and trace left pleural effusions. Cholelithiasis with gallbladder wall edema/inflammation. Correlate with right u pper quadrant pain and biliary labs. Consider right upper quadrant ultrasound.
--- NOTE | 2023-06-11 08:24 | ECG_ITS ---
Measurements Intervals [place] Rate: 110 P: KS: 0 QRS: 95 QRSD: 129 T: -13 QT: 336 QTc: 455 Interpretive Statements ATRIAL FIBRILLATION WITH RAPID VENTRICULAR RESPONSE RIGHT BUNDLE BRANCH BLOCK BASELINE ARTIFACT- I, II ,III, AVR, AVL, AVF, V3-V6 ABNORMAL ECG NO PREVIOUS ECG AVAILABLE FOR COMPARISON Electronically Signed On 06-11-2023 8:32:40 WET CHEMISTRY ANALYST by Jimmy Vásquez D.O.
--- NOTE | 2023-06-11 08:29 | ED.SOB ---
HPI - SOB/Dyspnea General Chief Complaint: Shortness of Breath/Dyspnea Stated Complaint: DYSPNEA Source: patient and EMS Mode of arrival: EMS Limitations: no limitations History of Present Illness HPI Narrative: 73 years old white male lives alone, came to the ED by ambulance because of shortness of breath, shaking, nausea and vomiting twice oss architect. Patient was going to the bathroom, felt shaky, tried to go backward, went down to the floor slowly, he denies any injury or head injury. Patient is telling me that he have history of frequent falls and today is not different than before except this shaking and shortness of breath History of diabetes, hypertension, questionable congestive heart failure, Deep vein thrombosis currently on Eliquis, DNR. Patient does not take oxygen at home Related Data Home Medications Medication Instructions Recorded Confirmed multivitamin 1 tablet PO DAILY 06/25/19 05/23/23 omega-3 fatty acids 1,000 mg 1,000 mg PO DAILY 06/25/19 05/23/23 capsule (Fish Oil Concentrate) glucosamine-chondroitin 250 mg-200 1 tablet PO BID 11/25/19 05/23/23 mg tablet (Osteo Bi-Flex) psyllium husk 3.4 gram/5.4 gram 1 tbsp PO DAILY 07/10/22 05/23/23 oral powder (Metamucil) Allergies Allergy/AdvReac Type Severity Reaction Status Date / Time No Known Allergies Allergy Unknown Verified 06/11/23 08:37 Review of Systems Review of Systems: All systems reviewed & are unremarkable except as noted in HPI and below PMFSH Past Medical History Medical History Allergies Arthritis Bilateral lower extremity edema Cataract fragments in both eyes following surgery Chronic total retinal detachment Chronic venous stasis dermatitis of both lower extremities GERD (gastroesophageal reflux disease) History of DVT (deep vein thrombosis) Hypertension Testicular cancer Type 2 diabetes mellitus Surgical History Surgical History H/O hernia repair History of cataract surgery Left: August 2019 Right: February 2020 History of knee surgery History of vasectomy Family History Family History Father Diabetes mellitus Family history of congestive heart failure Mother Diabetes mellitus Unknown Obesity Grandparent Family history of bladder cancer Social History Social History Social History: Caffeine-coffee daily Smoking status: Never smoker Smoking end date: 06/03/97 Alcohol intake: current Drinks per week: 14 Alcohol use details: 3 drinks every day, gin Substance use: current Substance use type: marijuana Spiritual care concerns: No Exam Narrative: General appearance: Well-developed, well-nourished Skin: Normal color Head: Normocephalic, nontraumatic Eyes: Clear conjunctiva ENT: Oropharynx normal, ears normal, nose normal Neck: Supple, nontender Chest and respiratory: Airway patent, no respiratory distress, no accessory muscle use, diffuse basilar rales bilaterally Heart: Tachycardia, irregular irregularity Abdomen: Soft, nontender, no organomegaly, quiet bowel sounds Vascular: Normal peripheral pulses, normal capillary refill. Musculoskeletal: Normal range of motion, nontender back Neurologic: Alert and oriented ?3, TRADER is normal as tested, no gross motor deficit Course Vital Signs Vital signs: Vital Signs Pulse Rate 112 H 06/11/23 08:19 Respiratory Rate 18 06/11/23 08:19 Blood Pressure 118/89 06/11/23 08:19 Pulse Oximetry 81 L 06/11/23 08:19 Oxygen Delivery Nasal Cannul
[2023-06-11 08:56] LABS: Basophils Percent Auto 0.2 % (0.2-1.2); Eosinophils Percent Auto 0.1 % (0-4.4); Hematocrit 34.4 % (42.0-52.0); Hemoglobin 10.5 g/dL (14.0-18.0); Immature Granulocyte Absolute 0.11 K/mm3 (0.00-0.031); Immature Granulocyte Percent A 0.7 % (0-0.5); Lymphocytes Absolute Auto 0.69 K/mm3 (0.9-3.2); Lymphocytes Percent Auto 4.6 % (18.3-44.2); Mean Corpuscular HGB Conc 30.5 g/dl (32-36); Mean Corpuscular Volume 101.5 fl (80-100); Mean Platelet Volume 10.1 fl (7.4-10.4); Monocytes Absolute Auto 1.5 K/mm3 (0.1-0.6); Monocytes Percent Auto 9.8 % (2.6-8.5); Neutrophils Absolute Auto 12.8 K/mm3 (1.3-6.7); Neutrophils Percent Auto 84.6 % (45.5-73.1); Nucleated Red Blood Cells Perc 0.1 % (0.0-0.2); Platelet Count Result 302 k/mm3 (150-375); Red Blood Count 3.39 M/mm3 (4.6-6.20); Red Cell Distribution Width 19.9 % (11.5-14.5); White Blood Count 15.1 K/mm3 (4.5-10.0)
[2023-06-11 08:58] LABS: Alveolar/Arterial O2 Gradient 172.2 mmHg; Carboxyhemoglobin 0.2 % THb (0-2.0); Fractional Inspired Oxygen 40 %; HCO3 ABG 15.4 mEq/l (22.0-26.0); Methemoglobin ABG 0.1 %THb (0-1.5); Oxygen Content ABG 15.1 %vol (16.0-22.0); Oxygen Saturation ABG 95.4 % (95.0-100.0); Oxyhemoglobin 93.2 % THb (90.0-100.0); PO2 ABG 79.7 mmHg (80.0-100.0); PO2 FiO2 Ratio Arterial Blood 1.99 %; Reduced Hemoglobin 6.5 %THb (0-5.0); Total Hemoglobin 11.5 g/dL (12.0-18.0); pH ABG 7.343 (7.350-7.450)
[2023-06-11 09:01] LABS: Site Drawn LEFT BRACHIAL
[2023-06-11 09:02] LABS: Device NASAL CANNULA
[2023-06-11 09:05] LABS: INR 1.7; Prothrombin Time 20.6 Seconds (11.1-14.7)
[2023-06-11 09:06] LABS: Partial Thromboplastin Time 41.7 SECONDS (22.3-36.8)
[2023-06-11 09:08] LABS: Alanine Aminotransferase 16 U/L (6-50); Albumin Level 3.5 g/dL (3.5-5.1); Alkaline Phosphatase 134 U/L (38-126); Anion Gap 13 mmol/L (8-16); Aspartate Amino Transferase 29 U/L (17-59); Bilirubin,Total 1.4 mg/dL (0.2-1.3); Blood Urea Nitrogen 14 mg/dL (9-20); CRP 7.2 mg/dL (<1.0); Calcium 8.9 mg/dL (8.4-10.2); Carbon Dioxide 13 mmol/L (22-30); Chloride 112 mmol/L (98-107); Estimated CRCL calculation 79 ml/min; Estimated Glomerular Filt Rate > 60; Glucose 158 mg/dL (65-110); Potassium 4.4 mmol/L (3.4-5.0); Sodium 138 mmol/L (137-145)
[2023-06-11 09:20] LABS: NT Pro B Type Natriuretic Pept 6190 pg/mL (19.9-100); Troponin I 0.203 ng/mL (0.000-0.034)
[2023-06-11] MEDS: FUROSEMIDE INJ 40 MG/4 ML VIAL 60 MG IV PUSH (09:58)
[2023-06-11 10:35] LABS: Influenza A QL RT-PCR Negative (Negative); Influenza B QL RT-PCR Negative (Negative); RSV RNA, RT-PCR Negative (Negative); SARS-CoV-2 RNA PCR Negative (Negative)
--- NOTE | 2023-06-11 11:29 | ECG_ITS ---
Measurements Intervals [place] Rate: 87 P: NC: 0 QRS: 82 QRSD: 149 T: 1 QT: 406 QTc: 490 Interpretive Statements ATRIAL FIBRILLATION RIGHT BUNDLE BRANCH BLOCK BASELINE ARTIFACT- I, III, AVL, V1 ABNORMAL ECG COMPARED TO ECG 06/11/2023 08:26:42 HEART RATE HAS DECREASED Electronically Signed On 06-11-2023 13:24:51 BAG MACHINE ADJUSTER by Jimmy Vásquez D.O.
[2023-06-11 11:51] LABS: Reflex Lactic Acid Yes or No Add Lactic
[2023-06-11 12:31] LABS: Lactic Acid 1.9 mmol/L (0.7-2.0)
--- NOTE | 2023-06-11 12:55 | ECG_ITS ---
Measurements Intervals [place] Rate: 102 P: MA: 0 QRS: 125 QRSD: 126 T: 2 QT: 351 QTc: 458 Interpretive Statements ATRIAL FIBRILLATION WITH RAPID VENTRICULAR RESPONSE RIGHT BUNDLE BRANCH BLOCK LEFT POSTERIOR FASCICULAR BLOCK BASELINE ARTIFACT- I, II, III, AVR, AVL, AVF, V1-V6 ABNORMAL ECG COMPARED TO ECG 06/11/2023 13:09:22 HEART RATE HAS INCREASED LEFT POSTERIOR FASCICULAR BLOCK NOW PRESENT Electronically Signed On 06-11-2023 16:30:20 FINANCIAL AIDS OFFICER by Jimmy Vásquez D.O.
--- NOTE | 2023-06-11 13:27 | ADMGEN ---
This patient, Nicholas Cross, was admitted to IMU Room 210-01. Patient/family oriented to hospital policies and general routines including ID bracelet, bed and alarms, visiting hours, pain management, procedures, bathroom and other care routines, personal items, smoking policy, room service/diet, and visiting hours. Information on how to activate the Rapid Response Team has been discussed. Patient/Family are encouraged to report perceived risks to care and to ask questions if they do not understand what they are told or what they should do.
--- NOTE | 2023-06-11 14:47 | PM.CNCAR ---
Assessment and Plan Assessment and plan (1) CHF (congestive heart failure): Code(s): I50.9 - Heart failure, unspecified Status: Acute Assessment and Plan: Presents to the hospital following a ground level fall but has shortness of breath, chronic lower extremity edema, and congestion on his chest x-ray. will increase his furosemide to 40 mg IV push b.i.d. check echo low-sodium diet strict intake and output daily weights further recommendations to follow review of echocardiogram (2) Atrial fibrillation with rapid ventricular response: Code(s): I48.91 - Unspecified atrial fibrillation Status: Acute Assessment and Plan: This is a new diagnosis. Chronicity is unknown. His heart rate was elevated initially but now was in the 90s. For now, continue to monitor on telemetry. Hesitant to add AV annie blocking agents as he is known to have a history of sick sinus syndrome. he is chronically anticoagulated because of DVTs. We will increase his dose of apixaban to a therapeutic dose for stroke prophylaxis. (3) Elevated troponin: Code(s): R79.89 - Other specified abnormal findings of blood chemistry Status: Acute Assessment and Plan: Troponins are elevated at 0.203, 1.190, 3rd troponin level is pending. He denies any chest pain. He does not have any ischemic ST or T-wave changes on his EKG. Cannot rule out underlying coronary disease. Although he does not have chest pain he is diabetic, which may mask ischemic pain. He is unable to walk on a treadmill and with history of sick sinus syndrome, lexiscan is contraindicated. I am going to recommend outpatient coronary CTA. If his third troponin is significantly elevated, he develops chest pain, or his echo has WMA, could consider cardiac cath, but his anticoagulation would need to be held. Additionally, he is currently listed as a DNR, which would need to be rescinded if he wishes to proceed with a cath. (4) Sick sinus syndrome: Code(s): I49.5 - Sick sinus syndrome Status: Acute Assessment and Plan: Diagnosed with sick sinus syndrome several years ago. Beta-keny therapy was withdrawn at that time. He has not any problematic or concerning bradyarrhythmia since that time and has been resumed on a small dose of propranolol for essential tremors. History of Present Illness History of Present Illness Consult date/time: 06/11/23 14:47 Requesting physician: Olive Abreu APRN Consult reason: atrial fibrillation and congestive heart failure Reason For Visit: CHF/Elevated Troponin/New Onset Afib w RVR Narrative: Nicholas Cross is a 73-year-old male with sick sinus syndrome followed by Dr. Arenas. He comes to the hospital now following a ground level fall. He states that he was ambulating to the bathroom and ran into the door frame which caused him to fall. He denies any loss of consciousness. Cardiology is being asked to see him because of new atrial fibrillation and concern for congestive heart failure. He denies any history of atrial fibrillation, CHF, coronary artery disease. He has had some shortness of breath over the past several days in states that he stops taking his home dose of Lasix a couple of weeks ago because he had some blood in his urine and thought that he was damaging his kidneys with the Lasix. He denies any chest pain, palpitations, syncope, or presyncope. He does also have a history of lymphedema which is managed by his primary care doctor. Review of Systems Review of Systems: All systems reviewed & are unremarkable except as noted in HPI and below [facility] Past Medical History Medical History Allergies Arthritis Bilateral lower extremity edema Cataract fragments in both eyes following surgery Chronic total retinal detachment Chronic venous stasis dermatitis of both lower extremities GERD (gastroesophageal reflux d
[2023-06-11] MEDS: PERFLUTREN LIPID MICROSPHERES 1.5 ML VIAL DILUTED TO 10 ML TOTAL VOLUME IV PUSH (15:50)
--- NOTE | 2023-06-11 16:37 | IVDEFINITY ---
Prior to administration of IV Definity the patient was educated on the risks and benefits of the imaging enhancing agent including potential adverse side effects. The patient verbalized understanding. Allergies were verified. No exclusion criteria were identified and at least one of the following inclusion criteria were met: 1) physician request, 2) patient technically difficult to image (per the [place] [employer]chocardi[employer] guidelines of two or more segments not discernable within the apical view), or 3) questionable left ventricular function. ?
--- NOTE | 2023-06-11 16:50 | PM.IMHP ---
H&P: HPI History of Present Illness Date/Time: 06/11/23 16:50 Chief Complaint: SOB, Weakness Narrative: 73 y/o M presents here with SOB, fall, and weakness with PMH of sick sinus syndrome, venous stasis dermatitis, GERD, DVT, HTN, and diabetes. Patient reports shortness of breath that began yesterday, was prescribed Cipro. Then woke up this morning around 6:00 a.m. with continued shortness of breath, now more fatigued and feeling shaky . Attempted to walk to the bathroom around 8:00 a.m. when he felt weak/shaky. Fell backwards on to his right side. Denies any post fall pain but was too weak to get up. Patient called EMS, upon arrival he was found to be hypoxic with O2 sat at 88% on room air, diaphoretic, and gasping . Initially placed on non-rebreather, trialed on room air and was 81%. Placed back on 4L nasal cannula and able to maintain saturation above 90-92%. Initial workup revealed an elevated white count at 15.1, stable/chronic anemia with hemoglobin of 10.5, elevated troponin at 0.203, elevated BNP compared to prior, and lactic acid 3.0. XR read as mild pulmonary edema, small right pleural effusion, and cardiomegaly. EKG originally showing AFib with RVR, rate improved with supplemental O2, repeat EKG showed AFib and right bundle branch block. No previous history of atrial fibrillation, does have history of sick sinus syndrome. Currently reports he feels extremely fatigued and diaphoretic. Continued shortness of breath. Review of Systems Review of Systems: All systems reviewed & are unremarkable except as noted in HPI and below [facility] Past Medical History Medical History Allergies Arthritis Bilateral lower extremity edema Cataract fragments in both eyes following surgery Chronic total retinal detachment Chronic venous stasis dermatitis of both lower extremities GERD (gastroesophageal reflux disease) History of DVT (deep vein thrombosis) Hypertension Testicular cancer Type 2 diabetes mellitus Surgical History Surgical History H/O hernia repair History of cataract surgery Left: August 2019 Right: February 2020 History of knee surgery History of vasectomy Family History Family History Father Diabetes mellitus Family history of congestive heart failure Cerebrovascular accident Chronic obstructive pulmonary disease Hypertension Prostate carcinoma Mother Diabetes mellitus Hypertension Unknown Obesity Grandparent Family history of bladder cancer Social History Social History Social History: Caffeine-coffee daily Smoking packs per day: 1 Smoking cigarettes per day: 20.0 Years smoked: 10 Smoking pack-years: 10.00 Smoking status: Former smoker Tobacco type: cigarettes Smoking end date: 06/03/97 Additional smoking assessment comments: quit in 1999 Alcohol intake: current Drinks per week: 10 Alcohol use details: 3 drinks every day, gin Substance use: never Substance use type: marijuana Do You Feel Safe in your Home?: Yes Lack of Transportation: YES Lack of Food: Never True Current Housing: I Have Housing Concerned About Future Housing: No Difficulty Paying Gas/Electric Bills: No Difficulty Paying for Meds: No Currently Unemployed: No Education: High School Diploma/GED Difficulty w/ Childcare or Family Care: No Spiritual care concerns: No Meds Home Medications and Allergies Home Medications Medication Instructions Recorded Confirmed Type multivitamin 1 tablet PO DAILY 06/25/19 06/11/23 History omega-3 fatty acids 1,000 mg 1,000 mg PO DAILY 06/25/19 06/11/23 History capsule (Fish Oil Concentrate) glucosamine-chondroitin 250 mg-200 1 tablet PO BID 11/25/19 06/11/23 History mg tablet (Osteo Bi-Flex) psylliu
[2023-06-11] MEDS: FUROSEMIDE INJ 40 MG/4 ML VIAL IV PUSH (16:51)
[2023-06-11] MEDS: LOSARTAN POTASSIUM 50 MG TABLET PO (16:52)
[2023-06-11] MEDS: FINASTERIDE 5 MG TABLET PO (16:52)
[2023-06-11 17:03] LABS: Glucose Point of Care 154 mg/dl (65-105)
[2023-06-11] MEDS: AZITHROMYCIN 500 MG/NS 250 ML 500 MG/250 ML BAG 250 MG IVPB (17:08)
[2023-06-11 17:23] LABS: D Dimer 2.22 ug/mL (<0.48)
[2023-06-11 17:34] LABS: Appearance Urine Cloudy (Clear); Bacteria Urine 4+ /hpf; Bilirubin Urine Negative (Negative); Blood Urine 3+ (Negative); Color Urine Yellow (Yellow); Glucose Urine UA Negative (Negative); Ketones Urine Negative (Negative); Leukocyte Esterase Ur 2+ LEU/UL (Negative); Need Manual Microscopic Reviewed; Nitrate Urine Negative (Negative); Non Pathogenic Casts 0-2; Protein Urine 1+ mg/dL (Negative); Specific Grav Ur 1.009 (1.001-1.035); Squamous Epithelial Cell Urine None seen /hpf (Few); Urobilinogen Urine 0.2 mg/dL (<2.0); WBC Urine >100 /hpf
[2023-06-11 17:36] LABS: Add Urine Microscopic? YES
[2023-06-11] MEDS: LACTATED RINGERS 1,000 ML 100 ML IV CONT (18:37)
[2023-06-11 19:10] LABS: Procalcitonin 19.3 ng/mL
[2023-06-11 20:11] LABS: Glucose Point of Care 191 mg/dl (65-105)
--- NOTE | 2023-06-11 22:12 | PC.NURSE ---
2129 rounded on pt adjusted legs in bed. Pt was alert and oriented. Titrated 02 up to 4L as patient reported was a little short of breath 2149 While Rounding on other clients, received notification that pt heart rate was in the 30's. rushed to pt room and found him agonal breathing, diaphoretic, and unresponsive. Code status DNR, called Pt contact and TERRY Ayon to discuss situation and resuscitation status and he agreed for him to remain a DNR. 2154 Pt
--- NOTE | 2023-06-19 12:42 | P.DN_ITS ---
Discharge Summary Date and Time Date of : 06/11/23 Time of : 21:55 Provider Pronounced By: Nargis Browne RN Probable Cause of Probable Cause of : cardiac arrest Summary Hospital Course: Patient was admitted for sepsis, hypoxia, AFib RVR, and elevated troponins with past medical history of sick sinus syndrome, venous stasis dermatitis, GERD, DVT, HTN, diabetes. Patient was started on treatment for community-acquired pneumonia and a UTI. CT PE showed no PE, mild interstitial edema, dependent right lung consolidation likely atelectasis but infection cannot be excluded, mediastinal and bilateral hilar lymphadenopathy, small right and trace left pleural effusions, cholelithiasis with wall edema/inflammation.? initially diuresed due to suspected CHF exacerbation, however urine output was minimal so started on IV fluids and Wilson catheter was placed. Cardiology was consulted. Per chart review, when patient was rounded on at 9:30 p.m. he was alert and orientated and nasal cannula was titrated to 4 L due to shortness of breath. At 9:50 p.m. telemetry showed heart rate in the 30s. Nursing staff immediately went to room to assess patient and patient was found to have agonal breathing, diaphoretic, unresponsive. Code status was DNR. POA was contacted, discussed resuscitation status, and DNR status was confirmed by POA by nursing staff. patient at 9:55 p.m. on 06/11/2023 and Luz Marina CUTLER was notified. Additional Data Confirmation of as documented by pronouncing clinician: Pupillary Reflex, Palpable Pulses, Response to Stimuli, Heart Tones and Breath Sounds Name of Provider Notified: Dr. Raza Time Provider Notified: 22:00 Provider Requests Autopsy: No Family Requests Autopsy: No Hospital Account Liaison Notified: Yes Date [facility] Notified of : 06/11/23 Time [facility] Notified of : 22:23
== END 2023-06-11 21:55 | disposition expired | DRG 871 ==
LOC: ANHED 11:11 → ANHIMU 06-12 14:40
PROVIDERS: Admitting Provider Internal Medicine; Emergency Provider Emergency Medicine; PCP Internal Medicine; Visit Provider Student in an Organized Health Care Education/Training Program
DX: A41.9 Sepsis, unspecified organism (principal); J18.9 Pneumonia, unspecified organism; N39.0 Urinary tract infection, site not specified; I46.9 Cardiac arrest, cause unspecified; B96.20 Unspecified Escherichia coli [E. coli] as the cause of diseases classified elsewhere; E11.9 Type 2 diabetes mellitus without complications; I87.8 Other specified disorders of veins; I48.91 Unspecified atrial fibrillation; I49.5 Sick sinus syndrome; I11.0 Hypertensive heart disease with heart failure; I50.9 Heart failure, unspecified; K80.20 Calculus of gallbladder without cholecystitis without obstruction; K21.9 Gastro-esophageal reflux disease without esophagitis; R79.89 Other specified abnormal findings of blood chemistry; W19.XXXA Unspecified fall, initial encounter; Z66 Do not resuscitate; Z87.891 Personal history of nicotine dependence; Z86.718 Personal history of other venous thrombosis and embolism; Z85.47 Personal history of malignant neoplasm of testis; Z79.01 Long term (current) use of anticoagulants; Z79.84 Long term (current) use of oral hypoglycemic drugs; Z20.822 Contact with and (suspected) exposure to COVID-19; Z98.41 Cataract extraction status, right eye; Z98.42 Cataract extraction status, left eye
CPT/HCPCS: 36415; 36600; 71045; 71275; 80053; 81001; 82375; 82805; 82948; 83050; 83605; 83880; 84145; 84484; 85025; 85380; 85610; 85730; 86140; 87040; 87077; 87086; 87186; 87637; 93005; 96374; 99285; A9270; C8929; J0456; J0696; J1940; J7120; Q9957; Q9967